=== PATIENT | male | born 1945 | race Caucasian/White ===

== ENCOUNTER 2017-07-15 11:44 | Day surgery (SDC) | payer OTHER ==
[~2017-07-15] VITALS: Ht 165.1 cm; Wt 99.0 kg
[~2017-07-15 11:44] MED LIST: ACEDIPPM; ACET325 PO; ACET500; ALBU3IS; AMLO5 PO; ANDROGEL; ASPI81CH; ASPI81CH PO; AZIT250 PO; BUDE.5; CHOL10002 PO; FAMO10; FERR325; FLUT.05NI; GABA300; GUAI600T33 PO; INSLIS75I; INSUASPI; INSULANI; INSULANPEN; INVOKANA300 MG PO; LOSARTAN POTAS100 MG PO; METF500; METF500C PO; METO5A; METO5A PO; OMEP20ER; OMEP20ER PO; PATANASE; PERI2; Prilosec Otc20 MG PO; RABE20; SIMV10 PO; SPIR25 PO; THEO300ERB; Thera-M Caplet1 EACH PO; VALS80; [UNRECOGNIZED DRUG - OTHER]
[2018-03-26] MEDS ORDERED: Ocuflox5 ML LEFTEAR (17:36)
[2018-03-26] MEDS ORDERED: Augmentin 875-1 EACH PO (17:36)
== END 2017-07-15 14:21 | disposition home or self-care (01) ==
LOC: ORSCSDS 11:44
PROVIDERS: Surgery
PROC: 0DBM8ZX Excision of Descending Colon, Via Natural or Artificial Opening Endoscopic, Diagnostic (ICD-10-PCS; principal; 2017-07-15 13:00)
DX: Z12.11 Encounter for screening for malignant neoplasm of colon (principal); D12.4 Benign neoplasm of descending colon; K57.30 Diverticulosis of large intestine without perforation or abscess without bleeding; Z86.010 Personal history of colon polyps; E11.9 Type 2 diabetes mellitus without complications; J44.9 Chronic obstructive pulmonary disease, unspecified; I10 Essential (primary) hypertension; G47.33 Obstructive sleep apnea (adult) (pediatric); E78.5 Hyperlipidemia, unspecified; E66.01 Morbid (severe) obesity due to excess calories; Z68.36 Body mass index [BMI] 36.0-36.9, adult; Z87.891 Personal history of nicotine dependence; Z79.82 Long term (current) use of aspirin; Z79.4 Long term (current) use of insulin; Z79.899 Other long term (current) drug therapy
CPT/HCPCS: 82947; 88305; J7120

== ENCOUNTER 2018-01-04 00:35 | Inpatient (IN) | payer OTHER ==
[~2018-01-04] VITALS: Ht 165.1 cm; Wt 98.7 kg
[2018-01-04] MEDS ORDERED: ACET500 PO (01:33)
[2018-01-04] MEDS ORDERED: GABA300 PO (01:35)
[2018-01-04] MEDS ORDERED: Omeprazole20 M1 PO (01:37)
[2018-01-04 02:10] LABS: PCO2 Arterial 61.9 mmHg (35-45); PO2 Arterial 88.9 mmHg (80-100); pH Blood Arterial 7.32 (7.35-7.45)
[2018-01-04 05:32] LABS: PCO2 Arterial 53.9 mmHg (35-45); PO2 Arterial 66.5 mmHg (80-100); pH Blood Arterial 7.38 (7.35-7.45)
[2018-01-04 12:18] LABS: Hematocrit 31.8 % (37.0-53.0); Hemoglobin 8.6 g/dL (13.5-17.5); Mean Corpuscular HGB 25.8 pg (26.0-34.0); Mean Corpuscular Volume 96 fL (80-100); Mean Platelet Volume 9.9 fL (9.1-12.4); NRBC ABSOLUTE 0.04 K/mm3 (0.00-0.02); NRBC Auto 0.4 /100 WBC (0.0-0.2); Platelet Count 257 K/mm3 (150-400); RDW Coefficient Variation 17.2 % (11.7-14.2); RDW Standard Deviation 59.7 fL (35.1-46.3); Red Blood Cell Count 3.33 M/mm3 (4.30-5.90)
[2018-01-04 12:40] LABS: Alanine Aminotransfer (ALT/SGP 24 U/L (12-78); Albumin, Blood 3.1 g/dL (3.4-5.0); Albumin/Globulin Ratio 0.8 (0.8-1.8); Alk Phos 128 U/L (50-136); Anion Gap 8 mmol/L (6-16); Aspartate Aminotrans (AST/SGOT 23 U/L (12-37); Bilirubin, Total 0.6 mg/dL (0.1-1.0); Blood Urea Nitrogen 26 mg/dL (8-24); Bun/Creatinine Ratio 25.2 (12.0-20.0); CO2, Blood 28 mmol/L (21-32); Calcium, Blood 8.8 mg/dL (8.5-10.1); Chloride, Blood 102 mmol/L (98-108); Creatinine, Blood 1.03 mg/dL (0.60-1.20); Globulin, Blood 3.9 g/dL (2.2-4.0); Glomerular Filtration Rate >60 (60-); Glucose, Blood 271 mg/dL (70-99); Potassium, Blood 5.1 mmol/L (3.5-5.5); Sodium, Blood 138 mmol/L (136-145)
[2018-01-05 03:42] LABS: BASOPHILS ABSOLUTE AUTO 0.01 K/mm3 (0.00-0.23); BASOPHILS PERCENT AUTO 0 % (0-2); EOSINOPHILS PERCENT AUTO 0 % (0-6); Hematocrit 28.3 % (37.0-53.0); Hemoglobin 7.8 g/dL (13.5-17.5); IMMATURE GRAN ABSOLUTE AUTO 0.04 K/mm3 (0.00-0.10); IMMATURE GRAN PERCENT AUTO 0 % (0-1); LYMPHOCYTES ABSOLUTE AUTO 0.74 K/mm3 (0.84-5.20); LYMPHOCYTES PERCENT AUTO 6 % (21-46); MONOCYTES ABSOLUTE AUTO 0.84 K/mm3 (0.16-1.47); MONOCYTES PERCENT AUTO 7 % (4-13); Mean Corpuscular HGB 25.7 pg (26.0-34.0); Mean Corpuscular HGB Conc 27.6 g/dL (31.5-36.5); Mean Platelet Volume 9.9 fL (9.1-12.4); NEUTROPHILS ABSOLUTE AUTO 11.26 K/mm3 (1.96-9.15); NEUTROPHILS PERCENT AUTO 87 % (41-73); NRBC ABSOLUTE 0.02 K/mm3 (0.00-0.02); NRBC Auto 0.2 /100 WBC (0.0-0.2); Platelet Count 273 K/mm3 (150-400); RDW Coefficient Variation 17.2 % (11.7-14.2); RDW Standard Deviation 57.5 fL (35.1-46.3); Red Blood Cell Count 3.03 M/mm3 (4.30-5.90); White Blood Cell Count 12.89 K/mm3 (4.00-11.30)
[2018-01-05 03:44] LABS: Mean Corpuscular Volume 93 fL (80-100)
[2018-01-05 04:00] LABS: Anion Gap 6 mmol/L (6-16); Blood Urea Nitrogen 31 mg/dL (8-24); Bun/Creatinine Ratio 30.1 (12.0-20.0); CO2, Blood 32 mmol/L (21-32); Calcium, Blood 8.4 mg/dL (8.5-10.1); Chloride, Blood 102 mmol/L (98-108); Creatinine, Blood 1.03 mg/dL (0.60-1.20); Glomerular Filtration Rate >60 (60-); Glucose, Blood 168 mg/dL (70-99); Sodium, Blood 140 mmol/L (136-145)
[2018-01-06] MEDS ORDERED: ROBITUSSIN COU237 ML PO (09:42)
[2018-01-06] MEDS ORDERED: LEVO750 PO (09:43)
[2018-01-06] MEDS ORDERED: (None)20 M1 PO (09:44)
[2018-01-06] MEDS ORDERED: FLUT1DIS2 INH (09:48)
== END 2018-01-06 14:57 | disposition home or self-care (01) | DRG 193 ==
LOC: ER 00:35 → PCU 02:34
PROVIDERS: Emergency Medicine; Hospitalist; Internal Medicine
PROC: 5A09357 Assistance with Respiratory Ventilation, Less than 24 Consecutive Hours, Continuous Positive Airway Pressure (ICD-10-PCS; principal; 2018-01-04)
DX: J18.9 Pneumonia, unspecified organism (principal); J96.01 Acute respiratory failure with hypoxia; J44.1 Chronic obstructive pulmonary disease with (acute) exacerbation; J44.0 Chronic obstructive pulmonary disease with (acute) lower respiratory infection; E11.9 Type 2 diabetes mellitus without complications; I11.0 Hypertensive heart disease with heart failure; I50.9 Heart failure, unspecified; Z66 Do not resuscitate; I27.81 Cor pulmonale (chronic); Z79.84 Long term (current) use of oral hypoglycemic drugs; Z79.82 Long term (current) use of aspirin; Z79.4 Long term (current) use of insulin; Z79.899 Other long term (current) drug therapy; Z88.5 Allergy status to narcotic agent; Z87.891 Personal history of nicotine dependence
CPT/HCPCS: 36415; 36600; 80048; 80053; 82803; 82947; 85025; 85027; 93005; 93010; 94660; 94667; 94761; 94762; 96365; 97116; 97161; 99285-25; G8978; G8979; J1650; J1956; J2930

== ENCOUNTER 2018-07-09 14:09 | Emergency (ER) | payer OTHER ==
[~2018-07-09] VITALS: Ht 165.1 cm; Wt 90.7 kg
[~2018-07-09 14:09] MED LIST changes: +(None)20 M1 PO; +ACET500 PO; +Augmentin 875-1 EACH PO; +FLUT1DIS2 INH; +GABA300 PO; +LEVO750 PO; +Ocuflox5 ML LEFTEAR; +Omeprazole20 M1 PO; +ROBITUSSIN COU237 ML PO
== END 2018-07-09 16:00 | disposition home or self-care (01) ==
LOC: ER 14:09
DX: J96.11 Chronic respiratory failure with hypoxia (principal); Z99.81 Dependence on supplemental oxygen; Z88.5 Allergy status to narcotic agent; Z88.8 Allergy status to other drugs, medicaments and biological substances; Z79.899 Other long term (current) drug therapy; Z79.4 Long term (current) use of insulin; Z79.82 Long term (current) use of aspirin; Z79.52 Long term (current) use of systemic steroids; E11.9 Type 2 diabetes mellitus without complications; I10 Essential (primary) hypertension; E78.5 Hyperlipidemia, unspecified; Z87.891 Personal history of nicotine dependence
CPT/HCPCS: 99283

== ENCOUNTER 2019-06-09 18:19 | Inpatient (IN) | payer OTHER ==
[~2019-06-09] VITALS: Ht 165.1 cm; Wt 79.3 kg
[~2019-06-09 18:19] MED LIST changes: -ASPI81CH PO; +Aspir 8181 MG PO; +BASAGLAR K100 UNIT/1 SC; -INSULANPEN; +METF500 PO; +OMEPRAZOLE20 MG PO; -Omeprazole20 M1 PO; -SIMV10 PO; +Simvastatin20 MG PO
[2019-06-09 19:15] LABS: BASOPHILS ABSOLUTE AUTO 0.05 K/mm3 (0.00-0.23); BASOPHILS PERCENT AUTO 0 % (0-2); EOSINOPHILS ABSOLUTE AUTO 0.29 K/mm3 (0.00-0.68); EOSINOPHILS PERCENT AUTO 2 % (0-6); Hematocrit 35.4 % (37.0-53.0); Hemoglobin 10.6 g/dL (13.5-17.5); IMMATURE GRAN ABSOLUTE AUTO 0.07 K/mm3 (0.00-0.10); IMMATURE GRAN PERCENT AUTO 1 % (0-1); LYMPHOCYTES ABSOLUTE AUTO 2.02 K/mm3 (0.84-5.20); LYMPHOCYTES PERCENT AUTO 16 % (21-46); MONOCYTES ABSOLUTE AUTO 0.85 K/mm3 (0.16-1.47); MONOCYTES PERCENT AUTO 7 % (4-13); Mean Corpuscular HGB 27.7 pg (26.0-34.0); Mean Corpuscular HGB Conc 29.9 g/dL (31.5-36.5); Mean Corpuscular Volume 93 fL (80-100); Mean Platelet Volume 9.5 fL (9.1-12.4); NEUTROPHILS ABSOLUTE AUTO 9.67 K/mm3 (1.96-9.15); NEUTROPHILS PERCENT AUTO 75 % (41-73); Platelet Count 363 K/mm3 (150-400); RDW Coefficient Variation 16.3 % (11.7-14.2); RDW Standard Deviation 55.4 fL (35.1-46.3); Red Blood Cell Count 3.82 M/mm3 (4.30-5.90); White Blood Cell Count 12.95 K/mm3 (4.00-11.30)
[2019-06-09 19:35] LABS: Troponin I <0.015 ng/mL (0.000-0.040)
[2019-06-09 19:43] LABS: Alanine Aminotransfer (ALT/SGP 14 U/L (12-78); Albumin, Blood 2.9 g/dL (3.4-5.0); Albumin/Globulin Ratio 0.7 (0.8-1.8); Alk Phos 109 U/L (50-136); Anion Gap 4 mmol/L (6-16); Aspartate Aminotrans (AST/SGOT 18 U/L (12-37); Bilirubin, Total 0.4 mg/dL (0.1-1.0); Blood Urea Nitrogen 19 mg/dL (8-24); Bun/Creatinine Ratio 17.6 (12.0-20.0); CO2, Blood 33 mmol/L (21-32); Calcium, Blood 8.8 mg/dL (8.5-10.1); Chloride, Blood 100 mmol/L (98-108); Creatinine, Blood 1.08 mg/dL (0.60-1.20); Glomerular Filtration Rate >60 (60-); Glucose, Blood 163 mg/dL (70-99); Potassium, Blood 3.1 mmol/L (3.5-5.5); Sodium, Blood 137 mmol/L (136-145); Total Protein, Blood 6.9 g/dL (6.4-8.2)
[2019-06-09] MEDS ORDERED: FERSU300 PO (22:09)
[2019-06-09] MEDS ORDERED: ASCO500 PO (22:09)
--- NOTE | 2019-06-10 01:06 | NUR ---
23:30 PT ARRIVED TO MEDICAL FLOOR. PT HAVING URGENCY WITH VERY LARGE VERY LOOSE BMS FOR ABOUT 1 WEEK HE REPORTS. GAVE PT A BED BATH ADMISSION ASSESSMENTS COMPLETED. 1245: SPOKE TO BHARATI SHANKAR NURSING EDUCATION SPECIALIST REGARDING PT POC FSBS = 447, PT IS THIRSTY AND DIAPHORETIC. PT REPORTS THIS IS TYPICAL OF HIM; HE TAKES 20 UNITS OF LANTUS FOR THIS BID AT HOME ALONG WITH HIS METFORMIN BID. RECEIVED ORDER FOR NOW DOSE OF LANTUS PER EMAR. TELEMETRY PLACED AND VERIFIED. SPOKE TO RT TO VERIFY THEY ARE AWARE OF NEW RT ORDERS FOR THIS PT. THEY CAME AND ASSESSED THE PATIENT AND SETUP HIS CPAP. BED LOW AND LOCKED. CALL ALBERTO SHARMA. WILL CONTINUE TO MONITOR.
[2019-06-10 05:12] LABS: BASOPHILS ABSOLUTE AUTO 0.03 K/mm3 (0.00-0.23); BASOPHILS PERCENT AUTO 0 % (0-2); EOSINOPHILS ABSOLUTE AUTO 0.01 K/mm3 (0.00-0.68); EOSINOPHILS PERCENT AUTO 0 % (0-6); Hematocrit 35.3 % (37.0-53.0); Hemoglobin 10.5 g/dL (13.5-17.5); IMMATURE GRAN ABSOLUTE AUTO 0.12 K/mm3 (0.00-0.10); IMMATURE GRAN PERCENT AUTO 1 % (0-1); LYMPHOCYTES ABSOLUTE AUTO 0.48 K/mm3 (0.84-5.20); LYMPHOCYTES PERCENT AUTO 4 % (21-46); MONOCYTES ABSOLUTE AUTO 0.09 K/mm3 (0.16-1.47); MONOCYTES PERCENT AUTO 1 % (4-13); Mean Corpuscular HGB 27.6 pg (26.0-34.0); Mean Corpuscular HGB Conc 29.7 g/dL (31.5-36.5); Mean Corpuscular Volume 93 fL (80-100); Mean Platelet Volume 9.7 fL (9.1-12.4); NEUTROPHILS ABSOLUTE AUTO 12.22 K/mm3 (1.96-9.15); NEUTROPHILS PERCENT AUTO 94 % (41-73); Platelet Count 363 K/mm3 (150-400); RDW Coefficient Variation 16.6 % (11.7-14.2); RDW Standard Deviation 56.4 fL (35.1-46.3); White Blood Cell Count 12.95 K/mm3 (4.00-11.30)
--- NOTE | 2019-06-10 05:41 | NUR ---
EOS: PATIENT RESTED HE WAS ABLE THIS SHIFT. PER TELEMETRY THIS PATIENT HAS BEEN ST 120S-130S. PT IS PLESANT AND COOPERATIVE WITH CARE. BED LOW AND LOCKED. MRSA AND FLU SWAB COMPLETED.
[2019-06-10 05:48] LABS: Anion Gap 9 mmol/L (6-16); Blood Urea Nitrogen 22 mg/dL (8-24); Bun/Creatinine Ratio 18.6 (12.0-20.0); CO2, Blood 31 mmol/L (21-32); Calcium, Blood 8.4 mg/dL (8.5-10.1); Chloride, Blood 97 mmol/L (98-108); Creatinine, Blood 1.18 mg/dL (0.60-1.20); Glomerular Filtration Rate >60 (60-); Glucose, Blood 394 mg/dL (70-99); Potassium, Blood 3.6 mmol/L (3.5-5.5); Sodium, Blood 137 mmol/L (136-145)
--- NOTE | 2019-06-10 06:10 | NUR ---
EOS: PATIENT RESTED HE WAS ABLE THIS SHIFT. PER PCU TECH HRYTHM HAS BEEN SR WITH 1ST DEGREE BLOCK. PT HAD NO C/O PAIN THISHSIFT. RT GAVE BREATHING TREATMENTS. HE SLEPT WITH HIS CPAP AND 02 AT 2L. PT RECEVD MEDS PER EMAR. BED LOW AND LOCKED. PT CALLING APPROPRIATELY. HAS URGENCY WITH LOOSE BMS FOR ABOUT A WEEK NOW HE REPORTS. CALLED DR AND WILL SEND SAMPLE TO RULE OUT CDIFF WITH SAMPLE FROM NEXT BM. ALSO RESP PANEL AND MRSA SWAB SENT. BED LOW AND LOCKED. CALL DOMINGUEZ WITHIN REACH
[2019-06-10 06:40] LABS: Adenovirus Not Detected (NOT DETECT); Coronavirus 229E Not Detected (NOT DETECT); Coronavirus HKU1 Not Detected (NOT DETECT)
[2019-06-10 06:41] LABS: Bordetella pertussis Not Detected (NOT DETECT); Chlamydophila pneumoniae Not Detected (NOT DETECT); Coronavirus NL63 Not Detected (NOT DETECT); Coronavirus OC43 Not Detected (NOT DETECT); Human Metapneumovirus Not Detected (NOT DETECT); Human Rhinovirus/Enterovirus Not Detected (NOT DETECT); Influenza A Not Detected (NOT DETECT); Influenza A/2009-H1 Not Detected (NOT DETECT); Influenza A/H1 Not Detected (NOT DETECT); Influenza A/H3 Not Detected (NOT DETECT); Influenza B Not Detected (NOT DETECT); Mycoplasma pneumoniae Not Detected (NOT DETECT); Parainfluenza Virus 1 Not Detected (NOT DETECT); Parainfluenza Virus 2 Not Detected (NOT DETECT); Parainfluenza Virus 3 Not Detected (NOT DETECT); Parainfluenza Virus 4 Not Detected (NOT DETECT); Respiratory Syncytial Virus Not Detected (NOT DETECT)
--- NOTE | 2019-06-10 10:41 | NUR ---
BUCKLE FRAME SHAPER CALLING NURSE X3 TO NOTIFY OF HEART RATE JUMPING FROM 75-135 QUICKLY. STRIPS SENT UP FROM PCU AND DR HAAS NOTIFIED.
--- NOTE | 2019-06-10 11:34 | NUR ---
Echocardiogram completed.
--- NOTE | 2019-06-10 19:37 | NUR ---
SHIFT SUMMARY PT AXO, PLEASANT AND COOPERATIVE WITH CARE. NO ACUTE CHANGES THIS SHIFT. PT ON 3L VIA NC, O2 SAT AT 97%. PT REFUSED OOB THROUGHOUT THE DAY THOUGH. IS ABLE TO STAND TO URINATE IN URINAL. BED IN LOW POSITION, CALL LIGHT WITHIN REACH. IV PATENT AND SALINE LOCKED.
[2019-06-11 04:55] LABS: BASOPHILS ABSOLUTE AUTO 0.06 K/mm3 (0.00-0.23); BASOPHILS PERCENT AUTO 0 % (0-2); EOSINOPHILS ABSOLUTE AUTO 0.23 K/mm3 (0.00-0.68); EOSINOPHILS PERCENT AUTO 1 % (0-6); Hematocrit 34.7 % (37.0-53.0); Hemoglobin 10.2 g/dL (13.5-17.5); IMMATURE GRAN PERCENT AUTO 1 % (0-1); LYMPHOCYTES ABSOLUTE AUTO 2.72 K/mm3 (0.84-5.20); LYMPHOCYTES PERCENT AUTO 17 % (21-46); MONOCYTES ABSOLUTE AUTO 0.89 K/mm3 (0.16-1.47); MONOCYTES PERCENT AUTO 6 % (4-13); Mean Corpuscular HGB 27.4 pg (26.0-34.0); Mean Corpuscular HGB Conc 29.4 g/dL (31.5-36.5); Mean Corpuscular Volume 93 fL (80-100); Mean Platelet Volume 9.5 fL (9.1-12.4); NEUTROPHILS ABSOLUTE AUTO 11.97 K/mm3 (1.96-9.15); NEUTROPHILS PERCENT AUTO 75 % (41-73); Platelet Count 379 K/mm3 (150-400); RDW Coefficient Variation 16.5 % (11.7-14.2); RDW Standard Deviation 56.2 fL (35.1-46.3); Red Blood Cell Count 3.72 M/mm3 (4.30-5.90); White Blood Cell Count 15.97 K/mm3 (4.00-11.30)
[2019-06-11 05:35] LABS: Anion Gap 6 mmol/L (6-16); Blood Urea Nitrogen 22 mg/dL (8-24); CO2, Blood 32 mmol/L (21-32); Chloride, Blood 102 mmol/L (98-108); Glomerular Filtration Rate >60 (60-); Glucose, Blood 130 mg/dL (70-99); Potassium, Blood 4.2 mmol/L (3.5-5.5); Sodium, Blood 140 mmol/L (136-145)
--- NOTE | 2019-06-11 05:50 | NUR ---
NO CHANGES TONIGHT. PT CALM AND COOPERATIVE WITH CARE.
[2019-06-11] MEDS ORDERED: FURO40 PO (12:46)
[2019-06-11] MEDS ORDERED: METO25 PO (12:46)
[2019-06-11] MEDS ORDERED: K-Dur10 MEQ PO (12:47)
--- NOTE | 2019-06-11 17:03 | NUR ---
DISCHARGE SUMMARY PT DISCHARGED TO HOME. PT LEFT ROOM VIA WHEELCHAIR AT 1643 WITH SALES TRADER ESCORT. PT HAS HOME O2 CONCENTRATOR FOR 3L O2 VIA NC FROM HOME. PT EDUCATED ON DISCHARGE INSTRUCTIONS, ALL QUESTIONS ANSWERED. PT AGREES TO FOLLOW UP WITH CARDIOLOGY AND PCP PRESCRIBED. 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
== END 2019-06-11 16:43 | disposition home or self-care (01) | DRG 291 ==
LOC: ER 18:19 → MEDS 22:52
PROVIDERS: Emergency Medicine; Internal Medicine; Nurse Practitioner Acute Care; ADMIT Family Medicine
DX: I11.0 Hypertensive heart disease with heart failure (principal); J96.01 Acute respiratory failure with hypoxia; I50.33 Acute on chronic diastolic (congestive) heart failure; I35.0 Nonrheumatic aortic (valve) stenosis; R19.7 Diarrhea, unspecified; E11.65 Type 2 diabetes mellitus with hyperglycemia; Z99.81 Dependence on supplemental oxygen; J44.9 Chronic obstructive pulmonary disease, unspecified; Z87.891 Personal history of nicotine dependence; E87.6 Hypokalemia; G47.33 Obstructive sleep apnea (adult) (pediatric)
CPT/HCPCS: 0099U; 36415; 71046; 80048; 80053; 82947; 83880; 84145; 84484; 85025; 93005; 93010; 93306; 94644; 94660; 94761; 94762; 96365; 96375; 99285-25; J0456; J0696; J1100; J1940; J2930; J3480; J7050

== ENCOUNTER 2019-06-30 10:17 | Day surgery (SDC) | payer OTHER ==
[~2019-06-30] VITALS: Ht 165.1 cm; Wt 88.0 kg
[~2019-06-30 10:17] MED LIST changes: +ASCO500 PO; +Cymbalta60 MG PO; +FERSU300 PO; +FURO40 PO; +K-Dur10 MEQ PO; +METO25 PO
--- NOTE | 2019-06-30 16:17 | NUR ---
PT DRESSED, R RADIAL DRESSING PLACED TO TR BAND SITE, R WRIST SPLINT PLACED, IV DC'D INTACT, PT DC'D BY WC BY PIEDAD ARMENDARIZ, W SISTER DRIVING PT HOME
== END 2019-06-30 16:15 | disposition home or self-care (01) ==
LOC: MHTC 10:17
PROC: 4A023N7 Measurement of Cardiac Sampling and Pressure, Left Heart, Percutaneous Approach (ICD-10-PCS; principal; 2019-06-30)
PROC: B2111ZZ Fluoroscopy of Multiple Coronary Arteries using Low Osmolar Contrast (ICD-10-PCS; principal; 2019-06-30)
DX: I35.0 Nonrheumatic aortic (valve) stenosis (principal); I25.118 Atherosclerotic heart disease of native coronary artery with other forms of angina pectoris; I11.0 Hypertensive heart disease with heart failure; I50.30 Unspecified diastolic (congestive) heart failure; J44.9 Chronic obstructive pulmonary disease, unspecified; E11.42 Type 2 diabetes mellitus with diabetic polyneuropathy; E78.5 Hyperlipidemia, unspecified; G47.30 Sleep apnea, unspecified; Z88.5 Allergy status to narcotic agent; Z87.891 Personal history of nicotine dependence; Z79.899 Other long term (current) drug therapy
CPT/HCPCS: 76937; 82947; 85347; 93460; 99152; 99153; C1769; C1887; C1894; J1644; J2250; J3010; J7030; J7040; Q9967

== ENCOUNTER 2019-12-20 22:44 | Emergency (ER) | payer OTHER ==
[~2019-12-20] VITALS: Ht 167.6 cm; Wt 79.4 kg
[2019-12-20 23:05] LABS: BASOPHILS ABSOLUTE AUTO 0.05 K/mm3 (0.00-0.23); BASOPHILS PERCENT AUTO 0 % (0-2); EOSINOPHILS ABSOLUTE AUTO 0.26 K/mm3 (0.00-0.68); EOSINOPHILS PERCENT AUTO 1 % (0-6); Hematocrit 32.9 % (37.0-53.0); Hemoglobin 10.1 g/dL (13.5-17.5); IMMATURE GRAN ABSOLUTE AUTO 0.05 K/mm3 (0.00-0.10); IMMATURE GRAN PERCENT AUTO 0 % (0-1); LYMPHOCYTES ABSOLUTE AUTO 1.47 K/mm3 (0.84-5.20); LYMPHOCYTES PERCENT AUTO 8 % (21-46); MONOCYTES PERCENT AUTO 6 % (4-13); Mean Corpuscular HGB 29.4 pg (26.0-34.0); Mean Corpuscular HGB Conc 30.7 g/dL (31.5-36.5); Mean Corpuscular Volume 96 fL (80-100); Mean Platelet Volume 9.8 fL (9.1-12.4); NEUTROPHILS ABSOLUTE AUTO 15.33 K/mm3 (1.96-9.15); NEUTROPHILS PERCENT AUTO 84 % (41-73); Platelet Count 213 K/mm3 (150-400); RDW Coefficient Variation 15.9 % (11.7-14.2); RDW Standard Deviation 55.3 fL (35.1-46.3); Red Blood Cell Count 3.44 M/mm3 (4.30-5.90); White Blood Cell Count 18.26 K/mm3 (4.00-11.30)
[2019-12-20 23:27] LABS: Alanine Aminotransfer (ALT/SGP 16 U/L (12-78); Albumin, Blood 3.1 g/dL (3.4-5.0); Alk Phos 121 U/L (50-136); Anion Gap 7 mmol/L (6-16); Aspartate Aminotrans (AST/SGOT 24 U/L (12-37); Bilirubin, Total 0.5 mg/dL (0.1-1.0); Blood Urea Nitrogen 22 mg/dL (8-24); Bun/Creatinine Ratio 18.3 (12.0-20.0); CO2, Blood 31 mmol/L (21-32); Calcium, Blood 8.3 mg/dL (8.5-10.1); Chloride, Blood 101 mmol/L (98-108); Globulin, Blood 3.1 g/dL (2.2-4.0); Glomerular Filtration Rate >60 (60-); Glucose, Blood 146 mg/dL (70-99); Potassium, Blood 3.1 mmol/L (3.5-5.5); Sodium, Blood 139 mmol/L (136-145); Total Protein, Blood 6.2 g/dL (6.4-8.2); Troponin I <0.015 ng/mL (0.000-0.040)
== END 2019-12-21 02:55 | disposition home or self-care (01) ==
LOC: ER 22:44
PROVIDERS: Emergency Medicine
DX: R55 Syncope and collapse (principal); D64.9 Anemia, unspecified; I35.0 Nonrheumatic aortic (valve) stenosis; Z88.5 Allergy status to narcotic agent; Z88.8 Allergy status to other drugs, medicaments and biological substances; Z79.82 Long term (current) use of aspirin; Z79.4 Long term (current) use of insulin; Z79.899 Other long term (current) drug therapy; I11.0 Hypertensive heart disease with heart failure; I50.9 Heart failure, unspecified; E11.9 Type 2 diabetes mellitus without complications; Z87.891 Personal history of nicotine dependence
CPT/HCPCS: 71045; 80053; 84484; 85025; 93005; 93010; 99285-25

== ENCOUNTER 2020-02-15 13:03 | Inpatient (IN) | payer OTHER ==
[~2020-02-15] VITALS: Ht 165.1 cm; Wt 74.8 kg
[~2020-02-15 13:03] MED LIST changes: +CLOP75 PO; +HYDCOR10 PO; +MIDO5 PO; +MULTI-VITAMIN1 EAC2 PO; -Thera-M Caplet1 EACH PO
[2020-02-15 13:29] LABS: BASOPHILS ABSOLUTE AUTO 0.06 K/mm3 (0.00-0.23); BASOPHILS PERCENT AUTO 0 % (0-2); EOSINOPHILS ABSOLUTE AUTO 0.15 K/mm3 (0.00-0.68); EOSINOPHILS PERCENT AUTO 1 % (0-6); Hematocrit 36.5 % (37.0-53.0); Hemoglobin 11.2 g/dL (13.5-17.5); IMMATURE GRAN ABSOLUTE AUTO 0.05 K/mm3 (0.00-0.10); IMMATURE GRAN PERCENT AUTO 0 % (0-1); LYMPHOCYTES ABSOLUTE AUTO 1.86 K/mm3 (0.84-5.20); LYMPHOCYTES PERCENT AUTO 14 % (21-46); MONOCYTES ABSOLUTE AUTO 0.92 K/mm3 (0.16-1.47); MONOCYTES PERCENT AUTO 7 % (4-13); Mean Corpuscular HGB 29.2 pg (26.0-34.0); Mean Corpuscular HGB Conc 30.7 g/dL (31.5-36.5); Mean Corpuscular Volume 95 fL (80-100); Mean Platelet Volume 10.1 fL (9.1-12.4); NEUTROPHILS ABSOLUTE AUTO 10.37 K/mm3 (1.96-9.15); NEUTROPHILS PERCENT AUTO 77 % (41-73); Platelet Count 243 K/mm3 (150-400); RDW Coefficient Variation 15.9 % (11.7-14.2); RDW Standard Deviation 55.4 fL (35.1-46.3); Red Blood Cell Count 3.83 M/mm3 (4.30-5.90); White Blood Cell Count 13.41 K/mm3 (4.00-11.30)
[2020-02-15 13:54] LABS: Alanine Aminotransfer (ALT/SGP 26 U/L (12-78); Albumin, Blood 3.3 g/dL (3.4-5.0); Albumin/Globulin Ratio 1.1 (0.8-1.8); Alk Phos 133 U/L (50-136); Anion Gap 9 mmol/L (6-16); Aspartate Aminotrans (AST/SGOT 18 U/L (12-37); Bilirubin, Total 0.8 mg/dL (0.1-1.0); Blood Urea Nitrogen 26 mg/dL (8-24); Bun/Creatinine Ratio 19.3 (12.0-20.0); CO2, Blood 30 mmol/L (21-32); Calcium, Blood 8.4 mg/dL (8.5-10.1); Chloride, Blood 98 mmol/L (98-108); Creatinine, Blood 1.35 mg/dL (0.60-1.20); Globulin, Blood 3.1 g/dL (2.2-4.0); Glomerular Filtration Rate 55 (60-); Glucose, Blood 202 mg/dL (70-99); Potassium, Blood 3.5 mmol/L (3.5-5.5); Sodium, Blood 137 mmol/L (136-145); Total Protein, Blood 6.4 g/dL (6.4-8.2); Troponin I <0.015 ng/mL (0.000-0.040)
--- NOTE | 2020-02-15 17:45 | NUR ---
TRANSFERRED TO MEDICAL FLOOR PT TRANSFERRED TO MEDICAL FLOOR FROM ED. PT AxOx4. ORIENTED TO THE ROOM. DENIES ANY PAIN AT THIS TIME. REQUESTS FOOD. TRAY ORDERED. VITALS CHECKED AND REVIEWED. PER ASSESSMENT, PT HAS HYPOACTIVE BOWEL TONES. REPORTS NOT EATING FOR 1.5 DAYS. NEUROPATHY IN BLE. FEET VERY SENSITIVE. RADIAL PULSED STRONG. PEDAL PULSES VERY FAINT. USED DOPPLER TO CONFIRM PULSES. HEART AND LUNG SOUNDS ASSESSED. LS CLEAR T/O. CAP REFILL <3. PT RESTING IN BED. DENIES ANY NEEDS AT THIS TIME. CALL LIGHT IN REACH.
--- NOTE | 2020-02-15 19:38 | NUR ---
1938 ORTHOS DONE AND PT UNABLE TO STAND DUE TO DIZZINESS. PT WAS FOUND TO BE HYPOTENSIVE. WCTM AND ASSESS PT.
--- NOTE | 2020-02-16 01:38 | NUR ---
0138 pt continues to have runs of 10-15 beats of v-tach q hour. pt denies cx pain or sob during episodes. dr adams called and informed of issue. provider ordered to continue to monitor.
--- NOTE | 2020-02-16 04:39 | NUR ---
SLIDE FASTENERS INSPECTOR SUMMARY PT ARRIVED TO THE FLOOR JUST PRIOR TO THE SLIDE FASTENERS INSPECTOR AND WAS EATING DINNER WHEN WE ASSUMED CARE. PT WAS UNABLE TO STAND FOR ORTHOSTATIC VITAL SIGNS DUE TO WEAKNESS AND DIZZINESS. PCU NATUROPATH CALLED MULTIPLE TIMES DURING THE SHIFT (6) REPORTING THAT THE PT HAD RUNS OF VTACH SO THE HOSPITALIST WAS CONTACTED TO SEE IF HE WANTED ANY INTERVENTION AND HE SAID JUST TO WATCH THE PT FOR SYMPTOMS. PT REMAINED ASYMPTOMATIC DURING ALL RUNS OF VTACH SO A 12 LEAD EKG WAS PERFORMED. PT DENIED ANY PAIN OR NAUSEA DURING THE NIGHT.
[2020-02-16 05:34] LABS: Hematocrit 36.2 % (37.0-53.0); Hemoglobin 10.9 g/dL (13.5-17.5); Mean Corpuscular HGB 28.4 pg (26.0-34.0); Mean Corpuscular HGB Conc 30.1 g/dL (31.5-36.5); Mean Corpuscular Volume 94 fL (80-100); Mean Platelet Volume 9.6 fL (9.1-12.4); Platelet Count 229 K/mm3 (150-400); RDW Coefficient Variation 16.1 % (11.7-14.2); Red Blood Cell Count 3.84 M/mm3 (4.30-5.90); White Blood Cell Count 11.92 K/mm3 (4.00-11.30)
[2020-02-16 06:08] LABS: Bun/Creatinine Ratio 21.5 (12.0-20.0); Calcium, Blood 8.7 mg/dL (8.5-10.1); Creatinine, Blood 1.35 mg/dL (0.60-1.20); Potassium, Blood 3.6 mmol/L (3.5-5.5)
--- NOTE | 2020-02-16 11:29 | NUR ---
CALLED REPORT AT 1009 TO CORTNEY, AND TRANSFERRED PT TO [facility]. MATERIAL SPREADER NOTIFIED. FREQUENT RUNS OF TACHYCARDIA >120. CARDIOLOGY CONSULT PENDING. ORTHOSTATICS COMPLETED THIS MORNING WITH SIGNIFICANT DROP IN SBP FROM LYING TO SITTING. SEE VITALS. PATIENT REPORTED DIZZINESS WHILE STANDING.
--- NOTE | 2020-02-16 18:49 | NUR ---
SHIFT NOTE PT MOVED FROM MEDICAL FLOOR THIS AFTERNOON FOR RUNS OF V-TACH PER TELE MONITOR. PT HAS NOT HAD ANY RUNS OF V-TACH SINCE ARRIVING FROM MEDICAL FLOOR. PT HAS BEEN EVALUATED BY DR LAZCANO THIS AM. AMIODRONE DRIP IS INFUSING CURRENTLY. VSS. PT RESTING WELL IN BED
--- NOTE | 2020-02-17 06:40 | NUR ---
SHIFT SUMMARY NO ACUTE CHANGES THIS SHIFT. PT A&O X4. SP02>94% ON 3L NC. TELEMETRY READS PACED, HR 70'S. PT DENIES PAIN. USED URINAL AT BEDSIDE T/O THE NIGHT. PT SLEPT MOST OF THE NIGHT. PT DID KNOCK SOME ITEMS OFF OF THE BEDSIDE TABLE, WHICH PT ATTEMPTED TO GET OUT OF BED TO EXHIBIT ELECTRICIAN. THIS NURSE ARRIVED BEFORE HE GOT OUT OF BED AND EDUCATED PT ON SAFETY AND PREVENTING FALLS. AMIODERONE DRIP RUNNING PER EMAR. WILL CONTINUE TO MONITOR UNTIL END OF SHIFT.
--- NOTE | 2020-02-17 07:03 | NUR ---
ACTH STIM LAB ACTH STIM TEST DRAWN BY LAB THIS AM. IV CORTROSYN THEN ADMINISTERED @ APPROX 0700 PER EMAR AFTER LAB DRAW.
[2020-02-17 07:25] LABS: BASOPHILS ABSOLUTE AUTO 0.04 K/mm3 (0.00-0.23); BASOPHILS PERCENT AUTO 0 % (0-2); EOSINOPHILS ABSOLUTE AUTO 0.26 K/mm3 (0.00-0.68); EOSINOPHILS PERCENT AUTO 3 % (0-6); Hematocrit 34.5 % (37.0-53.0); Hemoglobin 10.4 g/dL (13.5-17.5); IMMATURE GRAN ABSOLUTE AUTO 0.03 K/mm3 (0.00-0.10); IMMATURE GRAN PERCENT AUTO 0 % (0-1); LYMPHOCYTES PERCENT AUTO 14 % (21-46); MONOCYTES ABSOLUTE AUTO 0.72 K/mm3 (0.16-1.47); MONOCYTES PERCENT AUTO 8 % (4-13); Mean Corpuscular HGB 28.3 pg (26.0-34.0); Mean Corpuscular HGB Conc 30.1 g/dL (31.5-36.5); Mean Corpuscular Volume 94 fL (80-100); NEUTROPHILS ABSOLUTE AUTO 7.18 K/mm3 (1.96-9.15); NEUTROPHILS PERCENT AUTO 75 % (41-73); Platelet Count 218 K/mm3 (150-400); RDW Coefficient Variation 15.5 % (11.7-14.2); RDW Standard Deviation 53.8 fL (35.1-46.3); Red Blood Cell Count 3.67 M/mm3 (4.30-5.90); White Blood Cell Count 9.53 K/mm3 (4.00-11.30)
[2020-02-17 07:42] LABS: Anion Gap 5 mmol/L (6-16); Blood Urea Nitrogen 26 mg/dL (8-24); CO2, Blood 31 mmol/L (21-32); Calcium, Blood 8.6 mg/dL (8.5-10.1); Chloride, Blood 103 mmol/L (98-108); Creatinine, Blood 1.13 mg/dL (0.60-1.20); Glomerular Filtration Rate >60 (60-); Glucose, Blood 123 mg/dL (70-99); Potassium, Blood 3.8 mmol/L (3.5-5.5); Sodium, Blood 139 mmol/L (136-145)
--- NOTE | 2020-02-17 10:41 | NUR ---
ASSUME CARE: PT ON AMIODARANE GTT UPON RECEIVING REPORT FROM NOC RN, VITALS HRR PACED ON THE 60'S, BP SYSTOLIC 125, SATS ABOVE 95% ON 3L OF O2, AFEBRILE. PT DENIES ANY CHEST PAIN/PRESSURE, ATE BREAKFAST AND TOOK MEDS WITH NO ISSUES. DR LAL AND NOHEMI BURGOS DID ROUNDS WITH THIS RN THIS AM, PT TO START ON PO AMIODARONE PER DR BURGOS AND TO WAIT TIL AMIO BAG IS DONE TO STOP. NO OTHER ISSUES ENCOUNTERED OF THIS TIME WILL GET ORTHOSTATIC BP'S WHEN PT GETS UP IN BED. WILL MONITOR
--- NOTE | 2020-02-17 19:02 | NUR ---
PT SUMMARY: SEE PREVIOUS NOTES: NO ACUTE CHANGED, AMIO GTT STOPPED, PT ON PO AMIO 200MG BID, NO REPORTED EVENTS ON TELE. PT DENIES CHEST PAIN/PRESSURE. ORTHOSTATIC BP DONE PT WENT DOWN TO 94/50 (STANDING) FROM 124/59 MIDODRINE 2.5MG STARTED PER DR BURGOS PT WAS ASYMPTOMATIC WITH STANDING BUT REPORTED FEELING DIZZY WORKING WITH PHYSICAL THERAPY WITH FEW STEPS. NO OTHER ISSUES ENCOUNTERED PT NOW IN BED RESTING CALL LIGHTS IN REACH, WILL REPORT TO ONCOMING SHIFT
--- NOTE | 2020-02-18 06:02 | NUR ---
SHIFT SUMMARY NO ACUTE CHANGES THIS SHIFT. PT A&O X4. SP02>94% ON 3L NC. TELEMETRY READS PACED, HR 70'S. TOOK ORTHOSTATIC BP AT APPROX 20:20. LYIN/63 SITTIN/55 STANDIN/55. PT C/O OF BEING LIGHTHEADED WHILE STANDING AT BEDSIDE. PT DENIES PAIN. USED URINAL AT BEDSIDE T/O THE NIGHT. PT SLEPT MOST OF THE NIGHT. WILL CONTINUE TO MONITOR UNTIL END OF SHIFT.
--- NOTE | 2020-02-18 10:59 | NUR ---
PT STATUS CHANGED TO MEDICAL WITH TELE. NO ACUTE CHANGE OF THIS TIME VITALS HRR PACED AT 60'S, BP SYSTOLIC 120'S, SATS ABOVE 95% ON 3L OF O2, AFEBRILE. TO MONITOR ORTHOSTATIC BP'S. NO COMPLAINTS AT THIS TIME, PT IN BED RESTING WITH CALL LIGHTS IN REACH WILL MONITOR
--- NOTE | 2020-02-18 14:05 | NUR ---
PT WITH NO ACUTE CHANGE AT THIS TIME, ORTHOSTATIC BP'S DONE STILL DROPPING TO SYSTOLIC 90'S (STANDING) FROM 130'S (LYING). PT IS NOT C/O DIZZINESS BUT LIGHT HEADED A LITTLE BIT. PT WAS ABLE TO STAND AND TRANSFER TO WHEELCHAIR SAFELY WITH NO ISSUES. PT TRANSFERRED TO ROOM 228 REPORT GIVEN TO SAL ARMENDARIZ, PT ACCOMPANIED VIA WHEELCHAIR ALL BELONGINGS SENT WITH PT
--- NOTE | 2020-02-18 14:30 | NUR ---
RECENTLY RECIEVED REPORT FROM OTHER RN, THIS RN ASSUMING CARE OF PT. PT DENIES CP/SOB, DIZZINESS. PT ASSISTED WITH ADL'S PRN. PT HAS CALL LIGHT.
--- NOTE | 2020-02-18 15:27 | NUR ---
PT BEEN MOVED FROM PCU TO ROOM 228. PT BEEN ASSISTED WITH ADL'S PRN. PT RESTING QUIETLY. CALL LIGHT IN REACH.
[2020-02-19 04:26] LABS: Hematocrit 31.6 % (37.0-53.0); Hemoglobin 9.7 g/dL (13.5-17.5); Mean Corpuscular HGB 29.1 pg (26.0-34.0); Mean Corpuscular HGB Conc 30.7 g/dL (31.5-36.5); Mean Corpuscular Volume 95 fL (80-100); Mean Platelet Volume 9.9 fL (9.1-12.4); Platelet Count 204 K/mm3 (150-400); RDW Coefficient Variation 15.4 % (11.7-14.2); RDW Standard Deviation 53.1 fL (35.1-46.3); Red Blood Cell Count 3.33 M/mm3 (4.30-5.90); White Blood Cell Count 8.87 K/mm3 (4.00-11.30)
[2020-02-19 04:53] LABS: Anion Gap 4 mmol/L (6-16); Blood Urea Nitrogen 23 mg/dL (8-24); Bun/Creatinine Ratio 22.8 (12.0-20.0); CO2, Blood 33 mmol/L (21-32); Calcium, Blood 8.8 mg/dL (8.5-10.1); Chloride, Blood 102 mmol/L (98-108); Creatinine, Blood 1.01 mg/dL (0.60-1.20); Glomerular Filtration Rate >60 (60-); Glucose, Blood 139 mg/dL (70-99); Potassium, Blood 4.3 mmol/L (3.5-5.5); Sodium, Blood 139 mmol/L (136-145)
--- NOTE | 2020-02-19 05:20 | NUR ---
SHIFT SUMMARY PT RESTED WELL T/O NIGHT. AAOX4. PT DENIES DISCOMFORT/NAUSEA THIS SHIFT. TELEMETRY IN PLACE, 100% PACED IN 60s T/O NIGHT. PT UP TO AMBULATE IN ROOM, SBA WITH FWW, TOLERATES WELL, BED ALARM ON FOR SAFETY. NO ACUTE CHANGES THIS SHIFT. PT CURRENTLY RESTING WITH CALL LIGHT IN REACH.
[2020-02-19] MEDS ORDERED: Amiodarone HCl200 MG PO (14:54)
--- NOTE | 2020-02-19 16:29 | NUR ---
DISCHARGE: PACKET PRINTED AND PT EDUCATED. SYD RN FAXED NEW MEDICATIONS TO [facility]. PT LEFT UNIT VIA WHEELCHAIR ON 3L O2 (PT BASELINE) WITH MICHELLE DORMAN.
== END 2020-02-19 16:20 | disposition home health service (06) | DRG 312 ==
LOC: ER 13:03 → MEDS 17:04 → PCU 02-16 10:57 → SURS 02-18 14:04
PROVIDERS: Emergency Medicine; ADMIT Internal Medicine
DX: I95.1 Orthostatic hypotension (principal); I47.2 Ventricular tachycardia; I50.32 Chronic diastolic (congestive) heart failure; E27.1 Primary adrenocortical insufficiency; J44.9 Chronic obstructive pulmonary disease, unspecified; I35.0 Nonrheumatic aortic (valve) stenosis; Z87.891 Personal history of nicotine dependence; N18.31 Chronic kidney disease, stage 3a; G47.33 Obstructive sleep apnea (adult) (pediatric); Z95.2 Presence of prosthetic heart valve; Z79.82 Long term (current) use of aspirin; Z79.4 Long term (current) use of insulin; I25.10 Atherosclerotic heart disease of native coronary artery without angina pectoris; I12.9 Hypertensive chronic kidney disease with stage 1 through stage 4 chronic kidney disease, or unspecified chronic kidney disease; E11.22 Type 2 diabetes mellitus with diabetic chronic kidney disease
CPT/HCPCS: 36415; 71045; 80048; 80053; 80400; 82533; 82947; 83735; 83880; 84443; 84484; 85025; 85027; 93005; 93010; 93306; 94660; 94762; 97110; 97112; 97162; 97530; 99285-25; A9270-GY; J0282; J0834; J7060

== ENCOUNTER 2021-08-08 16:50 | Emergency (ER) | payer OTHER ==
[~2021-08-08] VITALS: Ht 165.1 cm; Wt 82.5 kg
[~2021-08-08 16:50] MED LIST changes: +Amiodarone HCl200 MG PO
[2021-08-08 17:34] LABS: BASOPHILS ABSOLUTE AUTO 0.04 K/mm3 (0.00-0.23); BASOPHILS PERCENT AUTO 0 % (0-2); EOSINOPHILS ABSOLUTE AUTO 0.13 K/mm3 (0.00-0.68); EOSINOPHILS PERCENT AUTO 1 % (0-6); Hematocrit 38.7 % (37.0-53.0); Hemoglobin 11.3 g/dL (13.5-17.5); IMMATURE GRAN ABSOLUTE AUTO 0.04 K/mm3 (0.00-0.10); IMMATURE GRAN PERCENT AUTO 0 % (0-1); LYMPHOCYTES ABSOLUTE AUTO 0.84 K/mm3 (0.84-5.20); LYMPHOCYTES PERCENT AUTO 8 % (21-46); MONOCYTES ABSOLUTE AUTO 0.81 K/mm3 (0.16-1.47); MONOCYTES PERCENT AUTO 8 % (4-13); Mean Corpuscular HGB 29.7 pg (26.0-34.0); Mean Corpuscular HGB Conc 29.2 g/dL (31.5-36.5); Mean Corpuscular Volume 102 fL (80-100); Mean Platelet Volume 11.7 fL (9.1-12.4); NEUTROPHILS ABSOLUTE AUTO 8.98 K/mm3 (1.96-9.15); NEUTROPHILS PERCENT AUTO 83 % (41-73); Platelet Count 203 K/mm3 (150-400); RDW Coefficient Variation 18.1 % (11.7-14.2); RDW Standard Deviation 67.9 fL (35.1-46.3); Red Blood Cell Count 3.81 M/mm3 (4.30-5.90); White Blood Cell Count 10.84 K/mm3 (4.00-11.30)
[2021-08-08 17:48] LABS: International Normalized Ratio 1.32; Prothrombin Time Results 13.6 Sec (9.7-11.5)
[2021-08-08 17:56] LABS: Albumin, Blood 3.5 g/dL (3.4-5.0); Albumin/Globulin Ratio 1.3 (0.8-1.8); Bilirubin, Total 1.2 mg/dL (0.1-1.0); Calcium, Blood 8.8 mg/dL (8.5-10.1); Creatinine, Blood 1.4 mg/dL (0.60-1.20); Globulin, Blood 2.7 g/dL (2.2-4.0); Total Protein, Blood 6.2 g/dL (6.4-8.2)
== END 2021-08-08 22:12 | disposition home or self-care (01) ==
LOC: ER 16:50
PROVIDERS: Emergency Medicine
DX: S09.90XA Unspecified injury of head, initial encounter (principal); J44.9 Chronic obstructive pulmonary disease, unspecified; E11.9 Type 2 diabetes mellitus without complications; I11.0 Hypertensive heart disease with heart failure; I50.9 Heart failure, unspecified; Z87.891 Personal history of nicotine dependence; Z79.899 Other long term (current) drug therapy; W19.XXXA Unspecified fall, initial encounter
CPT/HCPCS: 36415; 70450; 80053; 85025; 85610; 93005; 93010; 99284-25; J0282; J7030

== ENCOUNTER → 2021-08-28 | Outpatient (CLI) | payer OTHER ==
[~2021-08-28] MED LIST changes: +Calcium Carbon500 MG PO; +ELIQUIS5 M2 PO; +FURO20 PO; +IRON18 MG; +Lisinopril2.5 MG PO; +POTA10T PO; +Vitamin D1000 UNI1 PO
== END | disposition home or self-care (01) ==
LOC: LAB SHORT 11:00
DX: E11.42 Type 2 diabetes mellitus with diabetic polyneuropathy (principal)
CPT/HCPCS: 87070; 87075; 87077; 87186; 87205

== ENCOUNTER 2021-08-31 23:21 | Inpatient (IN) | payer OTHER ==
[~2021-08-31] VITALS: Ht 165.1 cm; Wt 93.1 kg
[~2021-08-31 23:21] MED LIST changes: -Calcium Carbon500 MG PO; -ELIQUIS5 M2 PO; -FURO20 PO; -IRON18 MG; -Lisinopril2.5 MG PO; -POTA10T PO; -Vitamin D1000 UNI1 PO
[2021-09-01 01:21] LABS: BASOPHILS ABSOLUTE AUTO 0.03 K/mm3 (0.00-0.23); BASOPHILS PERCENT AUTO 0 % (0-2); EOSINOPHILS ABSOLUTE AUTO 0.02 K/mm3 (0.00-0.68); EOSINOPHILS PERCENT AUTO 0 % (0-6); Hematocrit 36.5 % (37.0-53.0); Hemoglobin 10.8 g/dL (13.5-17.5); IMMATURE GRAN ABSOLUTE AUTO 0.05 K/mm3 (0.00-0.10); IMMATURE GRAN PERCENT AUTO 0 % (0-1); LYMPHOCYTES ABSOLUTE AUTO 0.51 K/mm3 (0.84-5.20); LYMPHOCYTES PERCENT AUTO 4 % (21-46); MONOCYTES ABSOLUTE AUTO 0.47 K/mm3 (0.16-1.47); MONOCYTES PERCENT AUTO 4 % (4-13); Mean Corpuscular HGB 29.6 pg (26.0-34.0); Mean Corpuscular HGB Conc 29.6 g/dL (31.5-36.5); Mean Corpuscular Volume 100 fL (80-100); Mean Platelet Volume 11.8 fL (9.1-12.4); NEUTROPHILS PERCENT AUTO 92 % (41-73); Platelet Count 246 K/mm3 (150-400); RDW Coefficient Variation 17.4 % (11.7-14.2); RDW Standard Deviation 64.3 fL (35.1-46.3); Red Blood Cell Count 3.65 M/mm3 (4.30-5.90); White Blood Cell Count 13.38 K/mm3 (4.00-11.30)
[2021-09-01 01:33] LABS: Albumin, Blood 3.1 g/dL (3.4-5.0); Albumin/Globulin Ratio 0.9 (0.8-1.8); Bilirubin, Total 1.2 mg/dL (0.1-1.0); Bun/Creatinine Ratio 31.8 (12.0-20.0); Creatinine, Blood 1.51 mg/dL (0.60-1.20); Globulin, Blood 3.3 g/dL (2.2-4.0); Potassium, Blood 4.9 mmol/L (3.5-5.5); Total Protein, Blood 6.4 g/dL (6.4-8.2)
[2021-09-01 01:34] LABS: C-Reactive Protein, High Sens. 62.9 mg/L (0.000-3.000)
[2021-09-01 04:35] LABS: Source, Urine Foley catheter
[2021-09-01 04:37] LABS: Bilirubin, Urine Neg (Neg); Blood, Urine 4+ (Neg); Glucose Qualitative, Urine Neg (Neg); Ketones, Urine 1+ (Neg); Leukocyte Esterase, Urine 1+ (Neg); Nitrite, Urine Neg (Neg); Protein, Urine 2+ (Neg); Urobilinogen, Urine 2+ (Normal)
[2021-09-01 04:46] LABS: Appearance, Urine Clear (Clear); Color, Urine Yellow (P-Yellow)
[2021-09-01 04:48] LABS: White Blood Cells, Urine 0-2 /hpf (0-5)
[2021-09-01 04:49] LABS: Bacteria Few /hpf; Squamous Epithelial Cells Few /hpf (Few)
--- NOTE | 2021-09-01 05:08 | NUR ---
ASSUMED PT CARE AT 0320 PT ARRIVED FROM ED ALERT AND ORIENTED AND ABLE TO MAKE NEEDS KNOWN. PT ON 6L OF OXYGEN WITH OXYGEN SATURATIONS LOW 80'S; CHANGED TO AN OXYMIZER AND O2 INCREASED TO 10LPM WITH SATURATIONS SLOWLY RECOVERING. PT NOTED TO HAVE WHEEZING NOTED T/O ALL LOBES AND CRACKLES NOTED TO BILATERAL LOWER LOBES. CALLED DR. JOHNSON REGARDING RESPIRATORY STATUS DECLINE WITH NEW ORDERS FOR LASIX IV PUSH, WELL GUZMAN CATHETER INSERTION. PT CURRENTLY ON 15L VIA OXYMIZER; LASIX ADMINISTERED WITH MINIMAL URINE OUTPUT. PT ALSO NOTED TO BE AFLUTTER WITH RATE 150'S AND SOFT BP'S THAT REQUIRED LOW DOSE OF LEVOPHED PERIPHERALLY, WHICH IS CURRENTLY AT 2MCG/MIN. NOTIFIED DR. JOHNSON REGARDING HR WITH NEW ORDERS FOR METOPROLOL PUSHES IV. PT DOES C/O SOB WHILE AT REST AND WHILE LYING FLAT WITH +2 PITTING EDEMA TO BLE AND BILATERAL HANDS. PT HAS WOUNDS TO BILATERAL LOWER EXTREMITIES, WHICH APPEAR TO BE DIABETIC/VENOUS IN NATURE WITH HX OF CELLULITIS. SURROUNDING TISSUE IS RED AND WARM. DRESSINGS CHANGED TO BLE'S UTILIZING PETROLEUM JELLY/GAUZE, COVERED WITH NON-ADHERENT DRESSING, AND WRAPPED WITH KERLEX. CALL LIGHT IS WITHIN REACH AND PT IS ABLE TO MAKE NEEDS KNOWN.
[2021-09-01 09:08] LABS: Bun/Creatinine Ratio 35.9 (12.0-20.0); Calcium, Blood 8.3 mg/dL (8.5-10.1); Creatinine, Blood 1.45 mg/dL (0.60-1.20); Potassium, Blood 5.2 mmol/L (3.5-5.5)
--- NOTE | 2021-09-01 11:35 | NUR ---
REPORTED TO NEGIN SHI TO BE DC, ALBUTEROL PRN ORDERED, MIDODRINE TO BE STARTED FOR SBP 80-90, HEART RATE WAS 130 MEDICATED WITH PRN LOPRESSOR, HEART RATE NOT 70S, DR DELATORRE TO ENTER ORDERS
--- NOTE | 2021-09-01 17:26 | NUR ---
REPORTED TOTAL OUTPUT FOR THE DAY TO DR DELATORRE IS 165, IV LASIX GIVEN, NO FLUIDS INFUSING, HOME CPAP IN ROOM NOW, DR DELATORRE WILL REVEIW ORDERS AND XRAY AND THEN DECIDE WHAT ORDERS TO ENTER
--- NOTE | 2021-09-01 18:11 | NUR ---
ALERT AND OREINTED X4, MAKES NEEDS KNOWN, PLEASANT TO CARE, REPOSITIONS SELF IN BED. LS DIMISHED THROUGH OUT, COUCH CLEARS CONGESTION AND CHANGES HIS HEART RHYTHM WHEN COUGHING, AFLUTTER, SR, ST, AFIB, MULTIPLE PVC, DENIES CP, LEVOPHED AT 3 MCG, MIDODRINE STARTED BP 101/67 (73), TITRATING LEVOPHED OFF, LEVOPHED TO LEFT AC PERIPHERAL LINE, CHARGE AWARE. ABD IS FIRM DISTENTED AND TIGHT PATIENT REPORTS THIS IS HIS NORM. LARGE FORMED BM TODAY, GUZMAN TO GRAVITY OUTPUT 165 FOR THE DAY, REPORTED THE OUTPUT TO DR DELATORRE, URINE CONCENTRATED LIGHT SOHA. 2 PERSON ASSIST TO BSC, HOME CPAP AT BEDSIDE, PATIENT USES 2L NC AT HOME ALSO. CALL LIGHT WITH IN REACH, WCTM
--- NOTE | 2021-09-01 18:47 | NUR ---
R AC IV FEEL OUT BY ACCIDENTED, CANNULA INTACT, LEFT AC INFUSING LEVOPHED AT 3 MCG, LEFT AC DRESSING SITE CHANGED, PATIENT VERY EDEMATOUS, CHARGE NOTIFIED, NO PG TO BE PLACED
--- NOTE | 2021-09-01 19:45 | NUR ---
ASSUMED CARE OF PT, HE IS NOTED RESTING QUIETLY AND RECLINING IN BED DENIES N/V, DENIES CP/PRESSURE, DENIES NUMBNESS/TINGLING BEYOND BASELINE. DOES ADMIT TO DYSPNEA HOWEVER STATES THAT IT IS MUCH IMPROVED FROM ARRIVAL TO ER. HE IS NOTED ABLE TO TURN HIMSELF WITH MINIMAL ASSISTANCE, WILL MONITOR FOR FREQUENCY OF SELF REPOSITIONING, DISCUSSED PRESSURE ULCER PREVENTION WITH PT. SATS ARE NOTED TO BE DIFFICULT TO OBTAIN ADEQUATE SIGNAL FOR ACCURATE READING, WHEN ADEQUATE SIGNAL IS OBTAINED, SATS ARE NOTED HIGH 90S WITH OXYGEN VIA OXYMIZER CANNULA AT 8 L/MIN, RESP RATE HIGH TEENS TO LOW 20S. LEVOPHED INFUSING TO LEFT AC IV ACCESS AT 3 MCG/MIN, SITE WNL, BLOOD EASILY ASPIRATED AND FLUSHES WELL, WILL CONT TO ATTEMPT TO TITRATE LEVOPHED TO OFF THIS SHIFT. WILL CONT TO MONITOR.
--- NOTE | 2021-09-01 22:03 | NUR ---
GUZMAN PT IS NOTED TO VOID AROUND GUZMAN CATHETER FOR THE SECOND TIME THIS SHIFT. GUZMAN DC'D WILL MONITOR FOR VOID.
[2021-09-02 05:07] LABS: BASOPHILS PERCENT AUTO 0 % (0-2); EOSINOPHILS PERCENT AUTO 0 % (0-6); Hematocrit 28.1 % (37.0-53.0); Hemoglobin 8.5 g/dL (13.5-17.5); IMMATURE GRAN ABSOLUTE AUTO 0.04 K/mm3 (0.00-0.10); IMMATURE GRAN PERCENT AUTO 0 % (0-1); LYMPHOCYTES ABSOLUTE AUTO 0.45 K/mm3 (0.84-5.20); LYMPHOCYTES PERCENT AUTO 4 % (21-46); MONOCYTES ABSOLUTE AUTO 0.33 K/mm3 (0.16-1.47); MONOCYTES PERCENT AUTO 3 % (4-13); Mean Corpuscular HGB Conc 30.2 g/dL (31.5-36.5); Mean Corpuscular Volume 99 fL (80-100); Mean Platelet Volume 11.3 fL (9.1-12.4); NEUTROPHILS ABSOLUTE AUTO 11.67 K/mm3 (1.96-9.15); NEUTROPHILS PERCENT AUTO 94 % (41-73); NRBC ABSOLUTE 0.02 K/mm3 (0.00-0.02); NRBC Auto 0.2 /100 WBC (0.0-0.2); Platelet Count 183 K/mm3 (150-400); RDW Coefficient Variation 17.2 % (11.7-14.2); RDW Standard Deviation 62.5 fL (35.1-46.3); Red Blood Cell Count 2.83 M/mm3 (4.30-5.90); White Blood Cell Count 12.49 K/mm3 (4.00-11.30)
[2021-09-02 05:41] LABS: Albumin, Blood 1.9 g/dL (3.4-5.0); Albumin/Globulin Ratio 0.9 (0.8-1.8); Bilirubin, Total 0.6 mg/dL (0.1-1.0); Bun/Creatinine Ratio 32.4 (12.0-20.0); Creatinine, Blood 1.48 mg/dL (0.60-1.20); Globulin, Blood 2.2 g/dL (2.2-4.0); Potassium, Blood 3.6 mmol/L (3.5-5.5)
[2021-09-02 06:09] LABS: Calcium, Blood 6.1 mg/dL (8.5-10.1); Total Protein, Blood 4.1 g/dL (6.4-8.2)
--- NOTE | 2021-09-02 06:24 | NUR ---
PT RESTS QUIETLY THIS SHIFT, EXTENDED DWELL IV ACCESS OBTAINED BY HUNTER AGUERO RN, LEVOPHED TITRATED DOWN FROM 3 MCG/MIN TO OFF BY MIDNOC, PRESSURES HAVE MAINTAINED THROUGHOUT NOC. SATS CONTINUE HIGH 90S WITH OXYGEN BLEED IN VIA HOME CPAP. MEDICATED WITH TYLENOL FOR PAIN X 1 THIS SHIFT, AT MIDNOC ASSESSMENT PT DENIED PAIN. GUZMAN REMOVED DUE TO PT VOIDING URINE AROUND CATHETER TUBING. HE HAS DENIED NEED TO VOID AT MIDNOC AND 0400 ASSESSMENT, TOTAL OUTPUT THIS SHIFT WAS 175 ML FROM GUZMAN WELL 2 UNMEASURED VOIDS.
--- NOTE | 2021-09-02 08:30 | NUR ---
INITIAL ASSESSMENT PATIENT ALERT AND ORIENTED. PATIENT POOR HISTORIAN. PATIENT TAKOTNA; HEARING AIDES PLACED BACK IN. PATIENT AFEBRILE. DENIES PAIN. PATIENT WEAK BUT ABLE TO MOVE ALL EXTREMITIES. PATIENT USES CANE TO GET AROUND AT HOME. LUNGS DIMINISHED THROUGHOUT. PATIENT WEARS CPAP AT HS. PATIENT STATES HE WEARS 3 L NC AT HOME BUT IS SATTING 90% AND GREATER ON 1 L NC. PATIENT HAS MOIST COUGH. PATIENT IN A. FIB, HR 90S TO LOW 100S. SBP 90S TO 140S. LEVOPHED HAS BEEN OFF SINCE MIDNIGHT. PACEMAKER NOTED. PATIENT EDEMATOUS THROUGHOUT. ABD HERNIA NOTED. LAST BM YESTERDAY. URINE SOHA IN COLOR. NEEDS ASSISTANCE WITH URINAL. BRIDGE OF NOSE REDDENED. GROIN FOLDS REDDENED. REDDENED COCCYX. CELLULITIS AND ULCERS NOTED TO BLES. NS TKO. BED LOW, CALL LIGHT IN REACH. WILL CONTINUE TO MONITOR FREQUENTLY THROUGHOUT SHIFT.
[2021-09-02] MEDS ORDERED: ELIQUIS5 M2 PO (09:50)
[2021-09-02] MEDS ORDERED: Calcium Carbon500 MG PO (09:53)
[2021-09-02] MEDS ORDERED: Vitamin D1000 UNI1 PO (09:58)
[2021-09-02] MEDS ORDERED: Lisinopril2.5 MG PO (10:03)
[2021-09-02] MEDS ORDERED: OMEP20ER PO (10:04)
[2021-09-02] MEDS ORDERED: IRON18 MG (10:05)
[2021-09-02] MEDS ORDERED: FURO20 PO (10:06)
[2021-09-02] MEDS ORDERED: POTA10T PO (10:06)
--- NOTE | 2021-09-02 12:40 | NUR ---
PATIENT AFEBRILE. NO COMPLAINTS OF PAIN. PATIENT INCREASED TO 3 L NC. HR IN THE 90S. SBP LOW 100S TO 1-TEENS. BLOOD SUGAR OF 275; COVERAGE GIVEN. NO OTHER ACUTE CHANGES TO NOTE ON AT THIS TIME.
--- NOTE | 2021-09-02 14:36 | NUR ---
DR. DELATORRE INFORMED THAT PATIENT'S MED REC COMPLETED FROM FAXED SHEET FROM [place].
--- NOTE | 2021-09-02 16:15 | NUR ---
PATIENT AFEBRILE. HR IN THE 70S. SBP IN THE 120S. WOUND CARE PERFORMED AND DRESSINGS CHANGED TO BLES. PATIENT REFUSED BED BATH AND ORAL CARE. PATIENT DID ALLOW RN AND CLINICAL GENETICIST TO WASH PERINEAL AND PERIANAL AREA AND CHANGE DUNN. NO OTHER ACUTE CHANGES TO NOTE ON AT THIS TIME.
--- NOTE | 2021-09-02 18:47 | NUR ---
SHIFT SUMMARY PATIENT REMAINED ALERT AND ORIENTED. PATIENT REMAINED AFEBRILE. PATIENT REMAINS WEAK. PHYSICAL THERAPY WORKED WITH PATIENT TODAY AND HAD HIM STAND AT BEDSIDE. PATIENT LACKS MOTIVATION AT TIMES TO DO ACTIVITIES/ HYGEINE. PATIENT HAD NO COMPLAINTS OF PAIN THIS SHIFT. PATIENT CONTINUED TO HAVE MOIST COUGH. PATIENT REMAINED SATTING 90% AND GREATER ON 1 TO 3 L NC. PATIENT REMAINED IN A.FIB WITH HR 70S TO LOW 100S. SBP 80S TO 140S. LEVOPHED REMAINED OFF. PATIENT REMAINED ON SCHEDULED MIDODRINE. PATIENT REMAINS EDEMATOUS. NO BM THIS SHIFT. PATIENT TOLERATED ADA DIET WELL. BLOOD SUGARS RANGED FROM 228 TO 275. PATIENT VOIDED 445 MLS OF SOHA COLORED URINE THIS SHIFT. NO CHANGES TO SKIN NOTED. WOUND CARE PERFORMED AND DRESSINGS CHANGED TO BLES. WALLACE O2 PROBE TO L EAR REMOVED THIS AM. 02 PROBE CHANGED TO FINGER. NS REMAINS TKO. PATIENT REFUSED BED BATH AND ORAL CARE THIS SHIFT. SISTER CALLED TO CHECK UP ON PATIENT. NURSE SPOKE WITH STATE MANAGER AND PLACED LIVESTOCK TRADER CONSULT PATIENT STATED THAT HE AND HIS OLDER SISTER NEED HELP AT HOME BUT DIDN'T KNOW HOW TO GET IT. PATIENT APPEARS COMFORTABLE AT THIS TIME. BED LOW, CALL LIGHT IN REACH. REPORT WILL BE GIVEN TO [facility] DES[facility]ER NURSE SHORTLY.
--- NOTE | 2021-09-02 19:00 | NUR ---
ASSUMED CARE OF ADOLFO. HE IS SITTING IN BED, WATCHING TV, ANSWERS PLEASANTLY. LUNGS CLEAR, O2 VIA NC @ 3L, ABD SOFT, NON TENDER, REQUESTING DIET PEPSI. URINAL AT BEDSIDE. LEGS WITH DRESSINGS FRESH, CLEAN AND DRY. RIGHT FOOT RED AND SWOLLEN, TAUT, PAINFUL. LEFT FOOT RED, PULSE PALPABLE, LESS TENDER. LA POWER GLIDE PATENT/FLUSHED. LEFT AC WITH TKO. PT DENIES ANY COMPLAINTS AT THIS TIME.
--- NOTE | 2021-09-02 20:30 | NUR ---
PT UP TO BSC, ASKS FOR ADDITIONAL ASSISTANCE. PT IS VERY STRONG AND STABLE ON HIS FEET WHEN TRANSFERRING FROM BED TO BSC. PT RETURNS TO BED, RN AND CPT AIDING TRANSFER BACK TO BED. DID WELL.
--- NOTE | 2021-09-02 21:49 | NUR ---
PT PUT ON HIS CPAP, TOOK HIS HEARING AIDS OUT AND ASKED TO SETTLE IN FOR THE NIGHT. SATS 100%, BP STABLE, HEART RATE PACED.
[2021-09-03 04:06] LABS: BASOPHILS ABSOLUTE AUTO 0.01 K/mm3 (0.00-0.23); BASOPHILS PERCENT AUTO 0 % (0-2); EOSINOPHILS PERCENT AUTO 0 % (0-6); Hematocrit 35.9 % (37.0-53.0); Hemoglobin 11.3 g/dL (13.5-17.5); IMMATURE GRAN ABSOLUTE AUTO 0.08 K/mm3 (0.00-0.10); IMMATURE GRAN PERCENT AUTO 1 % (0-1); LYMPHOCYTES ABSOLUTE AUTO 0.33 K/mm3 (0.84-5.20); LYMPHOCYTES PERCENT AUTO 2 % (21-46); MONOCYTES ABSOLUTE AUTO 0.84 K/mm3 (0.16-1.47); MONOCYTES PERCENT AUTO 6 % (4-13); Mean Corpuscular HGB 30.5 pg (26.0-34.0); Mean Corpuscular HGB Conc 31.5 g/dL (31.5-36.5); Mean Corpuscular Volume 97 fL (80-100); Mean Platelet Volume 11.2 fL (9.1-12.4); NEUTROPHILS ABSOLUTE AUTO 12.62 K/mm3 (1.96-9.15); NEUTROPHILS PERCENT AUTO 91 % (41-73); NRBC ABSOLUTE 0.03 K/mm3 (0.00-0.02); NRBC Auto 0.2 /100 WBC (0.0-0.2); Platelet Count 308 K/mm3 (150-400); RDW Coefficient Variation 16.9 % (11.7-14.2); RDW Standard Deviation 60.5 fL (35.1-46.3); Red Blood Cell Count 3.71 M/mm3 (4.30-5.90); White Blood Cell Count 13.88 K/mm3 (4.00-11.30)
[2021-09-03 04:28] LABS: Albumin, Blood 2.7 g/dL (3.4-5.0); Albumin/Globulin Ratio 0.8 (0.8-1.8); Bilirubin, Total 0.8 mg/dL (0.1-1.0); Bun/Creatinine Ratio 36.1 (12.0-20.0); Creatinine, Blood 2.16 mg/dL (0.60-1.20); Globulin, Blood 3.4 g/dL (2.2-4.0); Potassium, Blood 5.3 mmol/L (3.5-5.5)
[2021-09-03 04:30] LABS: Calcium, Blood 8.1 mg/dL (8.5-10.1); Total Protein, Blood 6.1 g/dL (6.4-8.2)
--- NOTE | 2021-09-03 06:23 | NUR ---
ADOLFO SLEPT FOR A COUPLE OF HOURS FROM MIDNIGHT TO AROUND 0430. HE THEN GOT UP IN THE CHAIR AND STAYED SITTING UP TIL AROUND 0600. HE HAS RETURNED TO BED. HE WORE HIS CPAP FROM AROUND 10PM TO AROUND 0200 AND THEN HAS BEEN WEARING THE NASAL CANNULA @ 3L SINCE THAT TIME. HE IS STRONG WITH MOVES AND TRANSFERS. HE SAYS HIS FEET AND LEGS FEEL BETTER WHEN HE GETS UP AND OUT OF BED. CONTINUES TO REFUSE ORAL CARE OR SKIN CARE. DRINKING HIS DIET PEPSI. WILL CONTINUE TO MONITOR AND TREAT, REPORTING OFF TO NEXT SHIFT WHEN ABLE.
--- NOTE | 2021-09-03 18:43 | NUR ---
SHIFT SUMMARY PT PCU STATUS. A&O X3. VSS. SPO2 > 92% ON 3L NC WHICH PT REPORTS HOME BASELINE O2 USE. CPAP AT BEDSIDE FOR NOC USE. PT W/ PACER. MONITOR SHOWING AFIB, HR 90's-130's. PRN IV LOPRESSOR GIVEN X1 W/ IMPROVEMENT. PT SBA FOR OOB TRANSFER. WILL CONTINUE TO MONITOR & PROVIDE CARE UNTIL REPORT OFF TO NATURAL GAS INSPECTOR RN.
--- NOTE | 2021-09-03 19:59 | NUR ---
RECEIVED PT FROM CARMEN, PT JUST RETURNED TO BED AND CARMEN WAS FINISHING UP DRESSING CHANGE ON HIS LOWER EXTREMITIES. HE SAID HE HAD A GOOD DAY, WORKED WITH THERAPY, SLEPT SOME, ATE WELL. HE IS SHORT OF BREATH AND AUDIBLY WHEEZING AT THIS TIME. SATS ARE READING OK. SLIGHTLY TACHY AT TIMES. SEE ASSESSMENT.
[2021-09-04 03:34] LABS: BASOPHILS PERCENT AUTO 0 % (0-2); EOSINOPHILS PERCENT AUTO 0 % (0-6); Hematocrit 37.3 % (37.0-53.0); Hemoglobin 11.3 g/dL (13.5-17.5); IMMATURE GRAN ABSOLUTE AUTO 0.06 K/mm3 (0.00-0.10); IMMATURE GRAN PERCENT AUTO 1 % (0-1); LYMPHOCYTES ABSOLUTE AUTO 0.21 K/mm3 (0.84-5.20); LYMPHOCYTES PERCENT AUTO 2 % (21-46); MONOCYTES ABSOLUTE AUTO 0.53 K/mm3 (0.16-1.47); MONOCYTES PERCENT AUTO 5 % (4-13); Mean Corpuscular HGB 29.4 pg (26.0-34.0); Mean Corpuscular HGB Conc 30.3 g/dL (31.5-36.5); Mean Corpuscular Volume 97 fL (80-100); Mean Platelet Volume 11.3 fL (9.1-12.4); NEUTROPHILS ABSOLUTE AUTO 9.09 K/mm3 (1.96-9.15); NEUTROPHILS PERCENT AUTO 92 % (41-73); Platelet Count 313 K/mm3 (150-400); RDW Coefficient Variation 16.8 % (11.7-14.2); RDW Standard Deviation 59.7 fL (35.1-46.3); Red Blood Cell Count 3.84 M/mm3 (4.30-5.90); White Blood Cell Count 9.89 K/mm3 (4.00-11.30)
[2021-09-04 03:53] LABS: Albumin, Blood 2.7 g/dL (3.4-5.0); Anion Gap 9 mmol/L (6-16); Blood Urea Nitrogen 92 mg/dL (8-24); Bun/Creatinine Ratio 39.5 (12.0-20.0); CO2, Blood 28 mmol/L (21-32); Calcium, Blood 8.1 mg/dL (8.5-10.1); Chloride, Blood 92 mmol/L (98-108); Creatinine, Blood 2.33 mg/dL (0.60-1.20); Glomerular Filtration Rate 27 (60-); Glucose, Blood 331 mg/dL (70-99); Phosphorus, Blood 5.3 mg/dL (2.5-4.9); Potassium, Blood 5.4 mmol/L (3.5-5.5); Sodium, Blood 129 mmol/L (136-145)
--- NOTE | 2021-09-04 05:44 | NUR ---
ADOLFO FINALLY SLEEPS. HE WAS UP IN THE CHAIR FROM 0200 TO 0400 BECAUSE HE WAS "RESTLESS AND COULDN'T SLEEP". HE HAS FINALLY FALLEN ASLEEP. VITALS GOOD, HEART RATE TACHY, BP ELEV, LEGS IMPROVING, DRESSINGS REMAIN C/D/I. PT STATES PAIN UNDER CONTROL. TAKING IN PO FLUIDS/FOOD WELL. VOIDS ONCE PER SHIFT.
--- NOTE | 2021-09-04 09:50 | NUR ---
0700 Pt assisted to commode to have BM. Heart rate noted 139 with the activity, but pt is not in distress. Mild shortness of breath with the activity. Helped back to bed after the activity. 0800 sitting up in bed to eat breakfast. 0900 Dr. Thakkar here to round. Pt's heart rate still 140-141 bpm while at rest in bed. PT reports no symptoms, states he cannot feel his heart racing. 0945 IV metoprolol given for persistent tachycardia; appears to be atrial flutter with BBB.
--- NOTE | 2021-09-04 10:29 | NUR ---
Heart rate improved to 103 bpm, blood pressure is stable. He worked with physical therapist Rah and heart rate and blood pressure stable during this time. Pt is now sitting up in chair, spo2 100% while on baseline home oxygen delivery of 3 l/min.
--- NOTE | 2021-09-04 12:29 | NUR ---
HYPOXIA to 77% without distress while sitting up in bed, eating lunch. Pt states that he has a tendency to eat really quickly. Encouraged taking breaths through his nose in between bites to maintain his oxygen levels. He did this and there was some improvement; oxygen delivery increased to 5 l/mn while eating. O2 Delivery 3 l/min otherwise, when finished with the activity.
--- NOTE | 2021-09-04 14:20 | NUR ---
Spiritual care Visit. Pt. is lying in bed, awake and welcomes my visit. Pt. is unsettled by the variety of health complications that he is contending with. Listen empathetical and develop rapport with pt. Pt. displays evidence of trust and spiritual commitment. Prayed with Pt. Pt. verbalizes gratitude for the spiritual care visit.
--- NOTE | 2021-09-04 14:29 | NUR ---
Wound care done. Left pretibial area has a round clearly defined area of superficial non intact skin, partially granulating, with serous drainage, moderate amount. Skintegrity cleaser used, pat dry with gauze and dressed with xeroform, then gauze and kerlix. Right pretibial area has scattered very tiny red spots of non-intact skin, little serous drainage. Wound care completed as above. Right foot 2nd digit is anteriorly non intact superficial skin loss, and pt states it is the most painful wound. Little serous drainage. Cleansed with skintegrity and covered with a non adherent bandage, secured with kerlix. Pt tolerated the wound care very well. Noted a dry round wound, open to air on the internal medial heel area.
--- NOTE | 2021-09-04 15:20 | NUR ---
While sitting up in bed to take Tylenol, the pt said that he took it too quickly. States that because of his esophageal cancer the pills sometimes "go down the wrong way". Per the student RN he swallowed his pills, coughed while his face was turning red and lips became cyanotic. spo2 dropped to 77, and heart rate increased to 139 bpm. resin coater Arnold came into the room, pt was helped to sit up, and o2 delivery increased to 5 l/min during his recovery. He is now receiving a breathing tx. He is conversant, spo2 no2 100% on 5 l/min.
--- NOTE | 2021-09-04 15:29 | NUR ---
PT WAS GIVEN IV metoprolol and breathing treatment. He is occasionally having a productive cough. He swallowed it before we could assess the sputum. Heart rate improved to 105 bpm now, spo2 99% on 5 l/min; however with coughing or eating he has hypoxia.
--- NOTE | 2021-09-04 16:11 | NUR ---
Pt heart rate is steady at 106 bpm, still atrial fibrillation. Spo2 99-100% on 5 l/min . Still sitting up in chair, encouraged him to stay up for dinner to reduce risk of aspiration.
--- NOTE | 2021-09-04 16:57 | NUR ---
Pt states that he got a good nap while tolerating the bipap. Now on hiflow AirVo and waiting for his dinner. Still noticing that he has shortness of breath with minimal exertion, including talking while at rest.
--- NOTE | 2021-09-04 19:11 | NUR ---
ASSUMED CARE PATIENT LYING IN BED SLEEPING. 3LPM VIA NC IN PLACE WITH SPO2 98-99%. MONITOR SHOWS A FIB WITH RATE 100'S-120'S. PATIENT IS EASILY AROUSABLE FROM SLEEP. PG IN PLACE TO LA W/ NO MEDS INF. CALL LIGHT AND BED CONTROLS IN PATIENT REACH. URINAL ON BEDSIDE. REPORT COMPLETED FROM KALA PATEL.
--- NOTE | 2021-09-04 21:18 | NUR ---
COUGHING W/ EATING ENTERED ROOM TO CHECK ON PATIENT AND FOUND HIM COUGHING IN BED SITTING AT 90 DEGREES WHILE DRINKING FRUIT CUP. OXYGEN SATURATION DECREASED TO 76% AT LOWEST AND REQUIRED INCREASED O2 VIA NC TO RETURN TO GREATER THAN 90%. PATIENT COUGH WAS WEAK AND UNABLE TO CLEAR SECRETIONS. FOOD AND DRINK REMOVED FROM PATIENT BEDSIDE AND DISCUSSED NPO WITH PATIENT UNTIL ST CAN COMPLETE SWALLOW EVAL. PATIENT WAS AGREEABLE WITH THIS PLAN.
[2021-09-05 04:18] LABS: BASOPHILS ABSOLUTE AUTO 0.02 K/mm3 (0.00-0.23); BASOPHILS PERCENT AUTO 0 % (0-2); EOSINOPHILS PERCENT AUTO 0 % (0-6); Hematocrit 37.3 % (37.0-53.0); Hemoglobin 11.3 g/dL (13.5-17.5); IMMATURE GRAN ABSOLUTE AUTO 0.08 K/mm3 (0.00-0.10); IMMATURE GRAN PERCENT AUTO 1 % (0-1); LYMPHOCYTES ABSOLUTE AUTO 0.18 K/mm3 (0.84-5.20); LYMPHOCYTES PERCENT AUTO 1 % (21-46); MONOCYTES PERCENT AUTO 4 % (4-13); Mean Corpuscular HGB 29.4 pg (26.0-34.0); Mean Corpuscular HGB Conc 30.3 g/dL (31.5-36.5); Mean Corpuscular Volume 97 fL (80-100); Mean Platelet Volume 11.9 fL (9.1-12.4); NEUTROPHILS ABSOLUTE AUTO 11.78 K/mm3 (1.96-9.15); NEUTROPHILS PERCENT AUTO 94 % (41-73); NRBC ABSOLUTE 0.21 K/mm3 (0.00-0.02); NRBC Auto 1.7 /100 WBC (0.0-0.2); Platelet Count 282 K/mm3 (150-400); RDW Coefficient Variation 16.3 % (11.7-14.2); RDW Standard Deviation 57.9 fL (35.1-46.3); Red Blood Cell Count 3.84 M/mm3 (4.30-5.90); White Blood Cell Count 12.56 K/mm3 (4.00-11.30)
[2021-09-05 04:48] LABS: Anion Gap 8 mmol/L (6-16); Blood Urea Nitrogen 93 mg/dL (8-24); Bun/Creatinine Ratio 39.4 (12.0-20.0); CO2, Blood 30 mmol/L (21-32); Calcium, Blood 8.4 mg/dL (8.5-10.1); Chloride, Blood 92 mmol/L (98-108); Creatinine, Blood 2.36 mg/dL (0.60-1.20); Glomerular Filtration Rate 27 (60-); Glucose, Blood 258 mg/dL (70-99); Potassium, Blood 4.9 mmol/L (3.5-5.5); Sodium, Blood 130 mmol/L (136-145)
--- NOTE | 2021-09-05 08:42 | NUR ---
MAKES NEEDS KNOWN, STAND BY ASSIST WITH FWW, AMBULATED TO TOILET, HEART RATE 140S, MEDICATED WITH SCHEDULED LOPRESSOR, WORKED WITH ST THIS AM, PT TO COME BACK AND SEE PATIENT. CALL LIGHT WITH IN REACH, WCTM
--- NOTE | 2021-09-05 09:29 | NUR ---
PATIENT TO XRAY VIA W/C, MAKES NEEDS KNOWN, HEART RATE 106
--- NOTE | 2021-09-05 15:08 | NUR ---
ECHO IN ROOM NOW
--- NOTE | 2021-09-05 16:39 | NUR ---
Spiritual Care Visit. Pt. is no longer in isolation. He is sitting up in a chair and welcomes my visit. Pt. is pleasant and remembers this vpk teacher from a previous visit. Pt. has a much more positive demeanor and displays evidence of hope. Spent some time developing rapport and facilitating a life review. Prayed with Pt. Pt. verbalized gratitude for the spiritual care visit.
--- NOTE | 2021-09-05 17:41 | NUR ---
ALERT AND ORIENTED X4, PLEASANT TO CARE, [place], WEAK, USES FWW AND STAND BY ASSIST TO TRANSFER AND AMBULATE IN THE ROOM. NC 4L SATS 85-98%, POOR CIRCULATION, POOR PLETH READINGS FOR CORRECT SATS. HEART RATE 70-140, ST/AFIB/ TRIGEMINY/MULTIPLE PVCs, DENIES CP PAIN OR A FLUTTER FEELING, STARTED PO LOPRESSOR AND USED PRN IV LOPRESSER, SBP 110-130s. ST CHANGED DIET TO PUREE AND NECTAR THICK LIQUIDS, ASPIRATION PRECAUTIONS, 1:1 FEEDER. USING BSU AND TOILET TO VOID, CLEAR YELLOW URINE. POOR SKIN TISSUE, DRSG INTACT ON DAVID LEGS AND FEET. CXRAY, ECHO DONE. CPAP AT NIGHT, WILL RELAY TO PM RN, CALEB
--- NOTE | 2021-09-05 18:14 | NUR ---
LEG DRESSING CHANGED, SKIN CLEANSER TO OPEN AREAS ON LEFT AND RIGHT SHINS, PATTED DRY, PLACE A XEROFORM OVER BOTH OPEN AREAS ON THE DAVID LOWER LEGS, WRAPPED LIGHTLY WITH A GAUZE WRAP, NONADHERANT DRESSING APPLIED TO RIGHT SECOND TOE WITH GAUZE WRAP. FEET COLD, LEFT FOOT WORSE THAN RIGHT FOR PULSES. PATIENT TOLERATED WITH EASE, PLEASANT TO CARE.
--- NOTE | 2021-09-05 19:21 | NUR ---
ASSUMED CARE PATIENT LYING IN BED AWAKE AND SEARCHING FOR URINAL UPON THIS NURSE ENTERING THE ROOM. GREETS STAFF PLEASANTLY AND USES CALL LIGHT APPROPRIATELY. NO FAMILY OR VISITORS AT BEDSIDE. PATIENT HOME BIPAP ON BEDSIDE TABLE. NO MEDS OR FLUIDS INF TO LA PG. MONITOR SHOWS 100% SPO2 ON 5LPM VIA NC, RHYTHM AFIB W/ RATE IN 90'S. CALL LIGHT AND BED CONTROLS WITHIN REACH. REPORT COMPLETED WITH KALA SNIDER.
[2021-09-06 03:55] LABS: BASOPHILS ABSOLUTE AUTO 0.01 K/mm3 (0.00-0.23); BASOPHILS PERCENT AUTO 0 % (0-2); EOSINOPHILS PERCENT AUTO 0 % (0-6); Hematocrit 38.3 % (37.0-53.0); Hemoglobin 11.4 g/dL (13.5-17.5); IMMATURE GRAN PERCENT AUTO 1 % (0-1); LYMPHOCYTES ABSOLUTE AUTO 0.32 K/mm3 (0.84-5.20); LYMPHOCYTES PERCENT AUTO 3 % (21-46); MONOCYTES ABSOLUTE AUTO 0.77 K/mm3 (0.16-1.47); MONOCYTES PERCENT AUTO 7 % (4-13); Mean Corpuscular HGB 29.2 pg (26.0-34.0); Mean Corpuscular HGB Conc 29.8 g/dL (31.5-36.5); Mean Corpuscular Volume 98 fL (80-100); Mean Platelet Volume 12.2 fL (9.1-12.4); NEUTROPHILS PERCENT AUTO 89 % (41-73); NRBC ABSOLUTE 0.48 K/mm3 (0.00-0.02); NRBC Auto 4.5 /100 WBC (0.0-0.2); Platelet Count 281 K/mm3 (150-400); RDW Coefficient Variation 16.5 % (11.7-14.2); RDW Standard Deviation 59.1 fL (35.1-46.3); Red Blood Cell Count 3.91 M/mm3 (4.30-5.90)
--- NOTE | 2021-09-06 04:01 | NUR ---
SHIFT SUMMARY PATIENT WAS RESTLESS T/O NIGHT WITH INTERMITTENT SLEEP. REQUESTED TO INSPECTOR MACHINE CUT GLASS ROOM WITH USE OF WALKER, AND TRANSFERRED BETWEEN BED AND RECLINING CHAIR FREQUENTLY. BECAME UNSTEADY AT TIMES WHEN STANDING, BUT QUICKLY REGAINED BALANCE WITH WALKER. SPO2 MAINTAINED HIGH 90'S-100% W/ 3LPM VIA NC. HR MAINTAINED IN 90'S. ONE DOSE OF ZOFRAN 4MG IV NEEDED FOR NAUSEA WITH RESOLVE OF SYMPTOMS. IMPULSIVE AT TIMES AND DOES NOT USE CALL LIGHT D/T BELIEF HE DOES NOT NEED HELP AND DOES NOT WANT TO BOTHER STAFF, DESPITE TEACHING NEED FOR STAFF TO BE IN ROOM TO PREVENT FALLS. PG TO LA PATENT AND NOT INF ANY MEDICATIONS. BLE BANDAGES CHANGED D/T SATURATED DRESSINGS. NO OTHER CHANGES DURING SHIFT.
[2021-09-06 04:27] LABS: Albumin, Blood 2.9 g/dL (3.4-5.0); Anion Gap 8 mmol/L (6-16); Blood Urea Nitrogen 97 mg/dL (8-24); Bun/Creatinine Ratio 41.1 (12.0-20.0); CO2, Blood 31 mmol/L (21-32); Calcium, Blood 8.3 mg/dL (8.5-10.1); Chloride, Blood 94 mmol/L (98-108); Creatinine, Blood 2.36 mg/dL (0.60-1.20); Glomerular Filtration Rate 27 (60-); Glucose, Blood 201 mg/dL (70-99); Phosphorus, Blood 5.6 mg/dL (2.5-4.9); Sodium, Blood 133 mmol/L (136-145)
--- NOTE | 2021-09-06 07:16 | NUR ---
ASSUMED CARE OF MR. MALONE UPON TRANSFER FROM ICU 5 TO PCU 17. PT ARRIVED IN RECLINER AND WAS THEN TRANSFERRED TO THE BED, PER HIS REQUEST, WITH ASSIST OF ONE AN DUSE OF WALKER. OBSERVED PT TO BE DYSPNEIC WITH TRANSFER AND SpO2 DROPPED TO 85%. DRESSINGS TO BILATERAL LOWER EXTREMITIES SATURATED, PER RN REPORT FREQUENT DRESSING CHANGES HAVE BEEN NECESSARY. DRESSINGS CHANGED AND PT RESTING COMFORTABLY IN BED.
--- NOTE | 2021-09-06 09:37 | NUR ---
ASSUMPTION OF CARE RECEIVED REPORT AT 0705, ASSUMED CARE OF PATIENT. PATIENT SITTING ON SIDE OF BED, A/O. BED ALARM ON, VERY SENSITIVE TO MOVEMENT, PATIENT BECOMING IRRITATED WITH FREQUENT ALARMING. ALARM TURNED OFF WITH RN BY ROOM, PATIENT UTILIZED CALL LIGHT APPROPRIATELY TO ASK FOR HELP. PATIENT FOLLOWING DIRECTIONS AND REMIANING ORIENTED. WILL PROVIDE FREQUENT MONITORING TO ALLOW BED ALARM TO REMAIN OFF. TAB ALARM UTILIZED IN CHAIR WITH NO IMPLUSIVENESS NOTED. PATIENT ON 3L 02 VIA NC, SP02 ABOVE 95%, HEART RATE CONTROLLED IN AFIB WITH RATE BELOW 100, STABLE B/P. TOLERATED BREAKFAST WITH APPROPRIATE DIET ORDERED AND THICKENED LIQUIDS. PO MEDS GIVEN WHOLE WITH APPLESAUCE, PATIENT TOLERATED WELL. DRESSING TO BLE, C/D/I AT THIS TIME. ORDERS REVIEWED, WILL TREAT PRESCRIBED.
--- NOTE | 2021-09-06 13:18 | NUR ---
WOUND CARE DRESSINGS CHANGED TO BLE, PREVIOUS DRESSING WITH S/S DRAINAGE.
--- NOTE | 2021-09-06 16:31 | NUR ---
Review of swallow evaluation pr kps score is 30%. Sill discuss with pt .
--- NOTE | 2021-09-06 17:47 | NUR ---
SHIFT SUMMARY PATIENT REQUIRING 3L 02 VIA NC AT ALL TIMES TO MAINTAIN SATS ABOVE 90%. UTILIZED CPAP WHILE ASLEEP WITH 3L BLEED IN. A/O AND USING CALL LIGHT APPROPRIATELY FOR NEEDS. STANDBY ASSIST TO BATHROOM WITH WALKER. SOB WITH ACTIVITY. CARDIOLOGY CONSULTED AND ASSESSED PATIENT. MEDICATION CHANGES MADE. FAMILY VISITED AND EDUCATED BY ELECTROMECHANICAL ENGINEER REGARDING MEDICATIONS AND DIET CHANGES. DRESSINGS TO BLE CHANGED CHARTED, CURRENTLY C/D/I. WILL CONTINUE TO MONITOR AND REPORT TO ONCOMING RN.
--- NOTE | 2021-09-06 21:28 | NUR ---
ASSUMED CARE RECEIVED REPORT FROM KALA DORMAN AT 1900. PT IN BED AND REQUESTING TO SIT UP AND DANGLE LEGS ON SIDE OF BED. ASSISTANCE NEEDED HE REMAINS WEAK, BED ALARM ON. HE IS A/O X4, EAG[place] AND WEARS HEARING AIDS. HE CONTINUES TO STATE HE WANTS TO GO HOME AND JUST DRINK A GLASS OF WATER, HOWEVER HE IS COOPERATIVE WITH CARE AND FOLLOWS COMMANDS WELL. CPAP REMOVED AND 4L NC O2 PLACED. SPO2 >96%. HR IS AFIB WITH RATE CONTROLLED IN 90-100'S. METOPROLOL HELD FOR SBP <105. PO MEDS GIVEN WITH APPLESAUCE. DRESSINGS ON BLE ARE C/D/I, HE REPORTS THE RIGHT FOOT IS TENDER AND PAINFUL. DRESSING TO RIGHT 2ND TOE C/D/I. PG TO LA SALINE LOCKED, GOOD BLOOD RETURN NOTED. ORDERS REVIEWED.
[2021-09-07 05:34] LABS: BASOPHILS ABSOLUTE AUTO 0.02 K/mm3 (0.00-0.23); BASOPHILS PERCENT AUTO 0 % (0-2); EOSINOPHILS PERCENT AUTO 0 % (0-6); Hematocrit 41.2 % (37.0-53.0); Hemoglobin 12.2 g/dL (13.5-17.5); IMMATURE GRAN PERCENT AUTO 2 % (0-1); LYMPHOCYTES ABSOLUTE AUTO 0.33 K/mm3 (0.84-5.20); LYMPHOCYTES PERCENT AUTO 2 % (21-46); MONOCYTES ABSOLUTE AUTO 1.51 K/mm3 (0.16-1.47); MONOCYTES PERCENT AUTO 9 % (4-13); Mean Corpuscular HGB Conc 29.6 g/dL (31.5-36.5); Mean Corpuscular Volume 98 fL (80-100); Mean Platelet Volume 11.9 fL (9.1-12.4); NEUTROPHILS ABSOLUTE AUTO 14.74 K/mm3 (1.96-9.15); NEUTROPHILS PERCENT AUTO 87 % (41-73); NRBC ABSOLUTE 0.85 K/mm3 (0.00-0.02); Platelet Count 246 K/mm3 (150-400); RDW Coefficient Variation 16.8 % (11.7-14.2); Red Blood Cell Count 4.21 M/mm3 (4.30-5.90)
[2021-09-07 05:55] LABS: Anion Gap 8 mmol/L (6-16); Blood Urea Nitrogen 105 mg/dL (8-24); CO2, Blood 31 mmol/L (21-32); Calcium, Blood 8.5 mg/dL (8.5-10.1); Chloride, Blood 96 mmol/L (98-108); Creatinine, Blood 2.44 mg/dL (0.60-1.20); Glomerular Filtration Rate 26 (60-); Glucose, Blood 65 mg/dL (70-99); Phosphorus, Blood 6.2 mg/dL (2.5-4.9); Potassium, Blood 5.5 mmol/L (3.5-5.5); Sodium, Blood 135 mmol/L (136-145)
--- NOTE | 2021-09-07 06:25 | NUR ---
PT REMAINED ON 4L NC O2 THROUGHOUT THE NIGHT, NO CPAP USED HE DID NOT SLEEP CONSISTENTLY, ONLY TAKING SMALL NAPS. HE CONTINUED TO WANT TO GET UP TO THE CHAIR, BACK TO BED, OR SIT AT THE BEDSIDE. HE STATES HE LIKES THE ROOM DARK AND QUIET AND DOES NOT SLEEP WELL AT HOME EITHER. 1 PERSON ASSIST WITH WALKER AND IS FAIRLY STEADY ON FEET. SPO2 IS DIFFICULT TO READ DUE TO POOR PERFUSION, BUT WAS >92%. HR REMAINS AFIB WITH RATE IN 90-110'S, METOPROLOL HELD DUE TO LOW SYSTOLIC BP <105 PER ORDER, OTHERWISE BP STABLE. BLOOD GLUCOSE THIS AM WAS 65, GAVE PT BITES OF APPLESAUCE, BUT HE REFUSED MORE THAN 3 BITES. BILATERAL LE DRESSINGS CHANGED THIS SHIFT, XEROFORM, ABSORBANT PADS, AND KERLIX USED. WILL REPORT TO ONCOMING SHIFT WHEN AVAILABLE.
--- NOTE | 2021-09-07 17:50 | NUR ---
SHIFT SUMMARY Pt is a/o x 4. He denies any pain but he has been weak and anxious needing to move back and forth from the bed trying to get comfortable. He is a SBA with FWW and gait belt for transfers. He has been very fatigued. He is on 3 LPM via NC which is his baseline at home. He does need the forehead pulse ox monitor due to the poor pleth on the finger probe. He has wounds to his lower legs and the dressings were changed and wounds cleansed. His blood sugars have been on the low side but they are quick to come back up to normal range with juice and/or food. He has a fair appetite. He is able to make his needs known and calls for help when needed.
--- NOTE | 2021-09-07 20:37 | NUR ---
review of tp decline with physician will meet with team for new plan of care.
--- NOTE | 2021-09-07 22:16 | NUR ---
PT O2 SATS HAVE BEEN LABILE, DROPPING INTO THE 40'S BRIEFLY THEN INCREASING BACK INTO THE HIGH 90'S IN LESS THEN A MINUTE. PT O2 AT 3-5LPM WHEN AWAKE OR CPAP WHEN SLEEPING, WILL MONITOR O2 SATS, NOW IN MID 90'S. PT'S HR INTO 120'S IN SINUS TACH WITH 1ST DEGREE AND BUNDLE BRANCH BLOCKS. BP'S STABLE WITH SBP 110'S AND MAP >65. WILL MONITOR. PT SITTING UP IN CHAIR FOR COMFORT. CALL LIGHT IN REACH.
[2021-09-08 03:39] LABS: BASOPHILS ABSOLUTE AUTO 0.01 K/mm3 (0.00-0.23); BASOPHILS PERCENT AUTO 0 % (0-2); EOSINOPHILS PERCENT AUTO 0 % (0-6); Hematocrit 40.8 % (37.0-53.0); Hemoglobin 12.1 g/dL (13.5-17.5); IMMATURE GRAN ABSOLUTE AUTO 0.23 K/mm3 (0.00-0.10); IMMATURE GRAN PERCENT AUTO 2 % (0-1); LYMPHOCYTES ABSOLUTE AUTO 0.27 K/mm3 (0.84-5.20); LYMPHOCYTES PERCENT AUTO 2 % (21-46); MONOCYTES ABSOLUTE AUTO 1.23 K/mm3 (0.16-1.47); MONOCYTES PERCENT AUTO 9 % (4-13); Mean Corpuscular HGB 28.9 pg (26.0-34.0); Mean Corpuscular HGB Conc 29.7 g/dL (31.5-36.5); Mean Corpuscular Volume 98 fL (80-100); Mean Platelet Volume 12.3 fL (9.1-12.4); NEUTROPHILS PERCENT AUTO 87 % (41-73); NRBC ABSOLUTE 0.67 K/mm3 (0.00-0.02); NRBC Auto 5.1 /100 WBC (0.0-0.2); Platelet Count 241 K/mm3 (150-400); RDW Standard Deviation 61.4 fL (35.1-46.3); Red Blood Cell Count 4.18 M/mm3 (4.30-5.90); White Blood Cell Count 13.04 K/mm3 (4.00-11.30)
[2021-09-08 04:00] LABS: Anion Gap 8 mmol/L (6-16); Blood Urea Nitrogen 109 mg/dL (8-24); Bun/Creatinine Ratio 44.1 (12.0-20.0); CO2, Blood 30 mmol/L (21-32); Calcium, Blood 8.4 mg/dL (8.5-10.1); Chloride, Blood 95 mmol/L (98-108); Creatinine, Blood 2.47 mg/dL (0.60-1.20); Glomerular Filtration Rate 25 (60-); Glucose, Blood 154 mg/dL (70-99); Phosphorus, Blood 6.5 mg/dL (2.5-4.9); Potassium, Blood 5.7 mmol/L (3.5-5.5); Sodium, Blood 133 mmol/L (136-145)
--- NOTE | 2021-09-08 05:38 | NUR ---
PT'S MORNING POTASSIUM NOTED TO BE 5.7. DR. HAAS INFORMED, RECEIVED ORDERS FOR IV D50%, IV INSULIN, AND IV CALCIUM GLUCONATE. D50% NOT STOCKED, INSTRUCTED BY PHARMACY TO GIVE 250ML D5% DUE TO SHORTAGE. MEDICATIONS GIVEN. PT TOLERATED WELL. INSTRUCTED TO RECHECK LEVELS AT 1000.
[2021-09-08 11:13] LABS: Albumin, Blood 3.1 g/dL (3.4-5.0); Bilirubin, Total 1.4 mg/dL (0.1-1.0); Bun/Creatinine Ratio 44.5 (12.0-20.0); Calcium, Blood 8.4 mg/dL (8.5-10.1); Creatinine, Blood 2.47 mg/dL (0.60-1.20); Globulin, Blood 3.2 g/dL (2.2-4.0); Potassium, Blood 5.2 mmol/L (3.5-5.5); Total Protein, Blood 6.3 g/dL (6.4-8.2)
--- NOTE | 2021-09-08 12:54 | NUR ---
Spoke with Primary RN Luis Angel and discussed case. Dr Thakkar already visited with Pt and discussed goals of care. Pt is agreeable for comfort care and hospice. Pt resting in bed and is A&OX4. Engaged in therapeutic listening as Pt discusses conversation that took place with hospitalist. Gentle education on comfort care and hospice philosophy with V/U made by Pt. Pt confirms his wishes for comfort care and hospice. Pt does report living at home with his older sister who's health is also frail. He reports his sister has eyes health problems and is starting to go blind. Pt reports little caregiver support at home. Continued therapeutic listening. Ended visit to allow Pt to rest. Pt gives this RN verbal permission to call sister and update on plan. Called and spoke with Pt's sister Sherri. Provided update and Pt wishes to focus on comfort. Sherri reports no being supprised due to his failing health and appears to be in agreement. 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 Continued therapeutic listening and validated concerns. Spoke with Caremanheriberto Lynch and discussed case. Placed comfort care order, comfort care order set, continued maintenance medications per V/O from Dr Thakkar. PPS 40% Palliative Care will remain available.
--- NOTE | 2021-09-08 18:07 | NUR ---
SHIFT SUMMARY: PT TRANSITIONED TO DNR CODE STATUS AND COMFORT CARE TODAY AFTER MEETING WITH DR DOVE AND MICHELE W/PALLIATIVE CARE. MAINTENANCE MEDS CONTINUE IN PLACE PER DR DOVE. PT CONTINUES A&Ox4, USES CALL LIGHT APPROPRIATELY. PT MAINTAINS COMFORT ON BASELINE 3 L/MIN VIA NC T/OUT THE DAY. SIN TACH ON MONITOR IN LOW 100s, BUT TELE MONITORING HAS BEEN DC'd AT THIS POINT. BLE WOUNDS HAVE BEEN CLEANED W/NEW DRESSINGS APPLIED. PT CONTINUES TO BE SBA W/FWW. WILL CONTINUE TO MONITOR AND TREAT ACCORDINGLY UNTIL CHANGE OF SHIFT.
--- NOTE | 2021-09-08 19:31 | NUR ---
ASSUMED PT CARE FROM REMIGIO ARMENDARIZ ON DAY SHIFT. PT RESTING IN BED WITH EYES CLOSED AT THIS TIME. DOES NOT APPEAR IN ANY DISTRESS. RESPIRATIONS ARE EVEN AND UNLABORED. CALL LIGHT IN REACH. WILL MONITOR.
--- NOTE | 2021-09-08 22:10 | NUR ---
PT ASSISTED FROM BED TO CHAIR. EVENING MEDICATIONS GIVEN, PT ABLE TO SWALLOW WITH THIN LIQUIDS WITH LITTLE DIFFICUTLY, NEEDING TO CLEAR THROAT MULTIPLE TIMES. DELCINES TO HAVE GLUCOSE CHECKED THIS EVENING. DENIES FURTHER NEEDS. CALL LIGHT IN REACH.
--- NOTE | 2021-09-09 04:35 | NUR ---
PT RESTING IN BED WITH EYES CLOSED. RESPIRATIONS EVEN AND UNLABORED. CALL LIGHT IN REACH.
--- NOTE | 2021-09-09 06:35 | NUR ---
UP SITTING IN CHAIR. NO VISIBLE SIGNS OF DISTRESS. SAFETY MEASURES IN PLACE.
--- NOTE | 2021-09-09 11:12 | NUR ---
Comfort Care Visit Pt resting in bed with his eyes closed. Pt appears comfortable with no S/S of distress at this time. Pt left undisturbed. Spoke with Primary RN Luis Angel and discussed case. No new concerns reprorted at this time. Spoke with Caremanager Cris earlier this AM. [facility] come assess Pt today. Palliative Care will remain available.
[2021-09-09] MEDS ORDERED: Acetaminophen650 M1 PO (16:04)
[2021-09-09] MEDS ORDERED: ALBU2.5V5 INH (16:05)
[2021-09-09] MEDS ORDERED: ATROPINE SULFATE2 M1 SL (16:06)
[2021-09-09] MEDS ORDERED: CEPH250A PO (16:08)
[2021-09-09] MEDS ORDERED: HUMULIN R100 UNIT/2 (16:09)
[2021-09-09] MEDS ORDERED: Ativan1 MG PO (16:10)
[2021-09-09] MEDS ORDERED: METO25 PO (16:11)
[2021-09-09] MEDS ORDERED: MIDO5 PO (16:11)
[2021-09-09] MEDS ORDERED: Prednisone10 MG PO (16:13)
[2021-09-09] MEDS ORDERED: MORP20L PO (16:13)
[2021-09-09] MEDS ORDERED: VISBIOME 112.51 EACH PO (16:14)
[2021-09-09] MEDS ORDERED: TRANSDERM-SCOP1 EAC1 TD (16:14)
[2021-09-09 16:30] LABS: Influenza A, PCR NEGATIVE (NEGATIVE); Influenza B, PCR NEGATIVE (NEGATIVE); Resp Syncytial Virus, PCR NEGATIVE (NEGATIVE); SARS-Cov-2 (COVID-19) PCR, MMC NEGATIVE (NEGATIVE)
--- NOTE | 2021-09-09 16:41 | NUR ---
Called [facility] to confirm correct fax number for med rec and covid swab result. Spoke with RNOD; both were faxed to [phone] per his instructions.
--- NOTE | 2021-09-09 18:54 | NUR ---
SHIFT SUMMARY: NO ACUTE CHANGES T/OUT TODAY. PT PENDING TRANSFER TO [facility] TOMORROW MORNING. PT CONTINUES A&O, COOPERATIVE WITH CARE, ABLE TO MAKE NEEDS KNOWN. O2 CONTINUES AT 3L/MIN. BLE WOUNDS CLEANED AND REDRESSED. PT CONTINUES SBA TO/FROM BEDSIDE COMMODE, CHAIR AND BED. WILL CONTINUE TO MONITOR AND TREAT ACCORDINGLY UNTIL CHANGE OF SHIFT.
--- NOTE | 2021-09-10 04:34 | NUR ---
UPDATE; FINAL DISCHARGE PT WAS RESTING PEACFULLY IN THE BED WHEHE STARTED TO HAVE AGONAL BREATHING. CPAP WAS REMOVED. PT WAS NON RESPONSIVE AND SKIN STARTED TO MOTTLED. PT WAS CONFIRMED PASSED BY THIS NURSE AND CHARGE NURSE ERIKA AT 0146 09/10/21. SISTER MAUREEN NOTIFIED AND SAID TO HAVE PT GO TO [facility] IN [place]. PT IS AWAITING TRANSPORT.
--- NOTE | 2021-09-10 05:56 | NUR ---
UPDATE; FINAL DISCHARGE PT LEFT WITH [facility] AT 0505. CHARGE NURSE NOTIFIED AND FORMS DOCUMENTED.
== END 2021-09-10 05:08 | DRG 871 ==
LOC: ER 23:21 → ICUE 09-01 02:29 → ICUW 09-01 02:29 → PCU 09-01 02:29 → ICUE 09-01 03:02 → PCU 09-06 04:49
PROVIDERS: Family Medicine; Internal Medicine; Student in an Organized Health Care Education/Training Program; ADMIT Internal Medicine
PROC: 3E033XZ Introduction of Vasopressor into Peripheral Vein, Percutaneous Approach (ICD-10-PCS; principal; 2021-09-01)
PROC: 3E03329 Introduction of Other Anti-infective into Peripheral Vein, Percutaneous Approach (ICD-10-PCS; 2021-09-01)
PROC: 5A09357 Assistance with Respiratory Ventilation, Less than 24 Consecutive Hours, Continuous Positive Airway Pressure (ICD-10-PCS; 2021-09-01)
DX: A41.01 Sepsis due to Methicillin susceptible Staphylococcus aureus (principal); R65.21 Severe sepsis with septic shock; I50.21 Acute systolic (congestive) heart failure; J96.21 Acute and chronic respiratory failure with hypoxia; L03.115 Cellulitis of right lower limb; Z66 Do not resuscitate; Z51.5 Encounter for palliative care; N17.9 Acute kidney failure, unspecified; J44.1 Chronic obstructive pulmonary disease with (acute) exacerbation; I42.9 Cardiomyopathy, unspecified; E87.1 Hypo-osmolality and hyponatremia; I13.0 Hypertensive heart and chronic kidney disease with heart failure and stage 1 through stage 4 chronic kidney disease, or unspecified chronic kidney disease; Z20.822 Contact with and (suspected) exposure to COVID-19; I48.91 Unspecified atrial fibrillation; N18.31 Chronic kidney disease, stage 3a; E11.649 Type 2 diabetes mellitus with hypoglycemia without coma; A40.8 Other streptococcal sepsis; E87.5 Hyperkalemia; R57.0 Cardiogenic shock; L97.519 Non-pressure chronic ulcer of other part of right foot with unspecified severity; D63.1 Anemia in chronic kidney disease; G47.33 Obstructive sleep apnea (adult) (pediatric); E11.22 Type 2 diabetes mellitus with diabetic chronic kidney disease; R13.10 Dysphagia, unspecified; Z95.2 Presence of prosthetic heart valve; Z88.5 Allergy status to narcotic agent; Z88.8 Allergy status to other drugs, medicaments and biological substances; Z95.0 Presence of cardiac pacemaker; Z79.02 Long term (current) use of antithrombotics/antiplatelets; Z79.4 Long term (current) use of insulin; Z79.899 Other long term (current) drug therapy; Z87.891 Personal history of nicotine dependence; Z98.890 Other specified postprocedural states
CPT/HCPCS: 0241U; 36415; 51702; 71045; 74230; 80048; 80053; 80069; 81001; 82947; 83605; 83735; 83880; 85025; 86141; 87040; 87086; 92526; 92610; 92611; 93005; 93010; 94640; 94660; 94664; 94760; 94762; 96365; 96366; 96368; 96375; 97110; 97116; 97162; 97530; 99285-25; A9270; C1751; C8929; J0610; J0690; J0696; J1170; J1650; J1815; J1940; J2405; J2930; J3370; J7030; J7040; J7060; J7512; Q9957